=== PATIENT | male | born 1945 | race Caucasian/White ===

== ENCOUNTER → 2023-07-12 09:06 | Outpatient (REF) | payer MEDICARE, BC, SELFPAY ==
[2023-07-12 12:58] LABS: % Eosinophils 3.3 % (0-6); % Immature Granulocytes 0.4 % (0-0.5); % Lymphocytes 20.7 % (20.5-51.1); % Neutrophils 64.6 % (42.2-75.2); Absolute Basophils 0.1 10^3/uL (0-0.2); Absolute Eosinophils 0.2 10^3/uL (0-0.7); Absolute Lymphocytes 1.1 10^3/uL (1.2-3.4); Absolute Monocytes 0.5 10^3/uL (0.1-0.6); Absolute Neutrophils 3.3 10^3/uL (1.4-6.5); Hematocrit 38.7 % (39.0-52.0); Hemoglobin 12.7 g/dL (13.0-18.0); Mean Corp Hgb Conc. 32.8 g/dL (33.0-37.0); Mean Corpuscular Hgb 29.1 pg (27.0-31.0); Mean Corpuscular Volume 88.8 fL (80.0-94.0); Mean Platelet Volume 10.7 fL (7.4-10.4); Nucleated Red Blood Cells % 0 % (-); Platelet Count 135 10^3/uL (130-400); Red Blood Cell Count 4.36 10^6/uL (4.70-6.10); Red Cell Dist. Width 14.4 % (11.5-14.5); White Blood Cell Count 5.1 10^3/uL (4.8-10.8)
[2023-07-12 13:09] LABS: ALT (SGPT) 22 U/L (0-50); AST (SGOT) 37 U/L (17-59); Albumin 4.2 g/dl (3.5-5.0); Alkaline Phosphatase 79 U/L (38-126); Blood Urea Nitrogen 32 mg/dl (9-20); Calcium 9.5 mg/dl (8.4-10.2); Carbon Dioxide 33 mmol/L (22-30); Chloride 95 mmol/L (98-107); Glucose 127 mg/dl (70-99); Iron 71 ug/dl (49-181); Potassium 3.9 mmol/L (3.5-5.1); Sodium 138 mmol/L (135-145); Total Bilirubin 0.8 mg/dl (0.2-1.3); Total Protein 7.3 g/dl (6.3-8.2); eGFR > 60.00
[2023-07-12 13:18] LABS: Percent Saturation 20 % (20-50); Total Iron Binding Capacity 345 ug/dl (261-462)
[2023-07-12 13:34] LABS: PSA, Total - Screen < 0.06 ng/ml (0.0-4.0)
[2023-07-12 13:38] LABS: Ferritin 67.3 ng/ml (17.9-464.0)
[2023-07-12 13:58] LABS: Microalbumin/creatinine Ratio 76.6 mg/g
[2023-07-12 14:42] LABS: Glycohemoglobin (HgbA1c) 6.6 % (4.0-5.6)
== END ==
LOC: HWLAB 09:06
PROVIDERS: ATTENDING PHYSICIAN Internal Medicine Endocrinology, Diabetes & Metabolism; FAMILY PHYSICIAN Internal Medicine; OTHER PHYSICIAN Internal Medicine; REFERRING PHYSICIAN Internal Medicine
DX: I50.31 Acute diastolic (congestive) heart failure (principal); E11.65 Type 2 diabetes mellitus with hyperglycemia; Z79.4 Long term (current) use of insulin; D50.8 Other iron deficiency anemias; Z12.5 Encounter for screening for malignant neoplasm of prostate
CPT/HCPCS: 36415; 80053; 82043; 82570; 82728; 83036; 83540; 83550; 85025; G0103

== ENCOUNTER → 2023-07-20 07:14 | Outpatient (REF) | payer MEDICARE, BC, SELFPAY ==
--- NOTE | 2023-07-20 17:02 | CARDSERVDEF ---
Echocardiogram with Definity completed after protocol screening completed. Allergies verified.
Patent IV site: _RH____
IV site flushed with 0.9% NaCl pre and post administration.
Diluted bolus method utilized to enhance visualization of ventricular quiroz.
Total volume given: __3__ mL
Patient tolerated all procedures well without complications.
== END ==
LOC: DHCBC HW 07:14
PROVIDERS: ATTENDING PHYSICIAN Internal Medicine; FAMILY PHYSICIAN Internal Medicine
DX: I50.31 Acute diastolic (congestive) heart failure (principal); R06.09 Other forms of dyspnea
CPT/HCPCS: 93308; Q9957

== ENCOUNTER → 2023-09-05 11:28 | Outpatient (REF) | payer MEDICARE, BC, SELFPAY ==
[2023-09-05 13:42] LABS: Blood Urea Nitrogen 38 mg/dl (9-20); Calcium 9.8 mg/dl (8.4-10.2); Carbon Dioxide 31 mmol/L (22-30); Chloride 99 mmol/L (98-107); Glucose 247 mg/dl (70-99); Potassium 4.3 mmol/L (3.5-5.1); Sodium 134 mmol/L (135-145); eGFR > 60.00
== END ==
LOC: HWLAB 11:28
PROVIDERS: ATTENDING PHYSICIAN Internal Medicine
DX: I50.32 Chronic diastolic (congestive) heart failure (principal)
CPT/HCPCS: 36415; 80048

== ENCOUNTER → 2023-10-17 07:07 | Outpatient (REF) | payer MEDICARE, BC, SELFPAY ==
[2023-10-17 10:17] LABS: % Basophils 0.5 % (0-2); % Eosinophils 2.2 % (0-6); % Immature Granulocytes 0.2 % (0-0.5); % Lymphocytes 25.9 % (20.5-51.1); % Monocytes 8.9 % (1.7-9.3); % Neutrophils 62.3 % (42.2-75.2); Absolute Eosinophils 0.1 10^3/uL (0-0.7); Absolute Lymphocytes 1.5 10^3/uL (1.2-3.4); Absolute Monocytes 0.5 10^3/uL (0.1-0.6); Absolute Neutrophils 3.6 10^3/uL (1.4-6.5); Hematocrit 41.2 % (39.0-52.0); Hemoglobin 13.7 g/dL (13.0-18.0); Mean Corp Hgb Conc. 33.3 g/dL (33.0-37.0); Mean Corpuscular Hgb 28.2 pg (27.0-31.0); Mean Corpuscular Volume 84.8 fL (80.0-94.0); Mean Platelet Volume 10.2 fL (7.4-10.4); Nucleated Red Blood Cells % 0 % (-); Platelet Count 131 10^3/uL (130-400); Red Blood Cell Count 4.86 10^6/uL (4.70-6.10); White Blood Cell Count 5.8 10^3/uL (4.8-10.8)
[2023-10-17 10:40] LABS: ALT (SGPT) 27 U/L (0-50); AST (SGOT) 39 U/L (17-59); Albumin 4.1 g/dl (3.5-5.0); Alkaline Phosphatase 81 U/L (38-126); Blood Urea Nitrogen 45 mg/dl (9-20); Calcium 9.8 mg/dl (8.4-10.2); Carbon Dioxide 29 mmol/L (22-30); Chloride 98 mmol/L (98-107); Glucose 138 mg/dl (70-99); Sodium 135 mmol/L (135-145); Total Bilirubin 0.5 mg/dl (0.2-1.3); Total Protein 7.2 g/dl (6.3-8.2); eGFR > 60.00
[2023-10-17 11:30] LABS: Vitamin B12 386 pg/ml (239-931)
[2023-10-18 11:38] LABS: Fructosamine 362 umol/L (205-285)
== END ==
LOC: HWLAB 07:07
PROVIDERS: ATTENDING PHYSICIAN Internal Medicine; FAMILY PHYSICIAN Internal Medicine; REFERRING PHYSICIAN Internal Medicine Endocrinology, Diabetes & Metabolism
DX: I50.32 Chronic diastolic (congestive) heart failure (principal); E11.8 Type 2 diabetes mellitus with unspecified complications; E53.8 Deficiency of other specified B group vitamins; E03.9 Hypothyroidism, unspecified
CPT/HCPCS: 36415; 80053; 82607; 82985; 83036; 84443; 85025

== ENCOUNTER → 2023-11-23 12:35 | Outpatient (REF) | payer MEDICARE, BC, SELFPAY ==
[2023-11-23 15:20] LABS: Blood Urea Nitrogen 40 mg/dl (9-20); Calcium 9.9 mg/dl (8.4-10.2); Carbon Dioxide 28 mmol/L (22-30); Chloride 96 mmol/L (98-107); Glucose 194 mg/dl (70-99); Potassium 4.9 mmol/L (3.5-5.1); Sodium 135 mmol/L (135-145); eGFR 56.23
== END ==
LOC: HWLAB 12:35
PROVIDERS: ATTENDING PHYSICIAN Internal Medicine; FAMILY PHYSICIAN Internal Medicine
DX: I50.32 Chronic diastolic (congestive) heart failure (principal)
CPT/HCPCS: 36415; 80048

== ENCOUNTER → 2024-01-09 08:07 | Outpatient (REF) | payer MEDICARE, BC, SELFPAY | LOC: HWRAD 08:07 | PROVIDERS: ATTENDING PHYSICIAN Specialist; FAMILY PHYSICIAN Internal Medicine | DX: K74.60 Unspecified cirrhosis of liver (principal) | CPT/HCPCS: 76700 ==

== ENCOUNTER → 2024-01-11 07:10 | Outpatient (REF) | payer MEDICARE, BC, SELFPAY ==
[2024-01-11 09:39] LABS: % Basophils 0.6 % (0-2); % Eosinophils 2.5 % (0-6); % Immature Granulocytes 0.2 % (0-0.5); % Lymphocytes 27.7 % (20.5-51.1); % Monocytes 10.7 % (1.7-9.3); % Neutrophils 58.3 % (42.2-75.2); Absolute Eosinophils 0.1 10^3/uL (0-0.7); Absolute Lymphocytes 1.4 10^3/uL (1.2-3.4); Absolute Monocytes 0.6 10^3/uL (0.1-0.6); Hematocrit 39.5 % (39.0-52.0); Hemoglobin 13.2 g/dL (13.0-18.0); Mean Corp Hgb Conc. 33.4 g/dL (33.0-37.0); Mean Corpuscular Volume 86.8 fL (80.0-94.0); Mean Platelet Volume 10.3 fL (7.4-10.4); Nucleated Red Blood Cells % 0 % (-); Platelet Count 123 10^3/uL (130-400); Red Blood Cell Count 4.55 10^6/uL (4.70-6.10); Red Cell Dist. Width 13.4 % (11.5-14.5); White Blood Cell Count 5.1 10^3/uL (4.8-10.8)
[2024-01-11 09:46] LABS: INR 1.09; PT 14.1 Sec (11.4-14.6)
[2024-01-11 09:47] LABS: APTT 29.4 Sec (23.4-35.0)
[2024-01-11 10:17] LABS: ALT (SGPT) 23 U/L (0-50); AST (SGOT) 35 U/L (17-59); Albumin 4.2 g/dl (3.5-5.0); Alkaline Phosphatase 67 U/L (38-126); Blood Urea Nitrogen 46 mg/dl (9-20); Calcium 9.7 mg/dl (8.4-10.2); Carbon Dioxide 26 mmol/L (22-30); Chloride 102 mmol/L (98-107); Glucose 98 mg/dl (70-99); HDL Cholesterol 47 mg/dl; LDL Cholesterol, Calculated 41 mg/dl; Potassium 4.9 mmol/L (3.5-5.1); Sodium 137 mmol/L (135-145); Total Bilirubin 0.8 mg/dl (0.2-1.3); Total Cholesterol 122 mg/dl (50-199); Triglyceride 171 mg/dl (10-149); Very Low Density Lipoprotein 34 mg/dl (0-30); eGFR 55.88
[2024-01-11 10:46] LABS: Glycohemoglobin (HgbA1c) 7.7 % (4.0-5.6)
[2024-01-11 19:32] LABS: AFP Male/Tumor Marker 1.58 ng/ml
[2024-01-13 04:56] LABS: Fructosamine 360 umol/L (205-285)
== END ==
LOC: HWLAB 07:10
PROVIDERS: ATTENDING PHYSICIAN Internal Medicine Endocrinology, Diabetes & Metabolism; FAMILY PHYSICIAN Internal Medicine; REFERRING PHYSICIAN Specialist
DX: K74.60 Unspecified cirrhosis of liver (principal); E11.65 Type 2 diabetes mellitus with hyperglycemia; Z79.4 Long term (current) use of insulin
CPT/HCPCS: 36415; 80053; 80061; 82105; 82985; 83036; 85025; 85610; 85730

== ENCOUNTER → 2024-02-09 09:58 | Outpatient (REF) | payer MEDICARE, BC, SELFPAY ==
[2024-02-09 13:59] LABS: Blood Urea Nitrogen 46 mg/dl (9-20); Carbon Dioxide 27 mmol/L (22-30); Chloride 98 mmol/L (98-107); Glucose 178 mg/dl (70-99); Potassium 5.2 mmol/L (3.5-5.1); Sodium 137 mmol/L (135-145); eGFR 55.88
== END ==
LOC: HWLAB 09:58
PROVIDERS: ATTENDING PHYSICIAN Internal Medicine Endocrinology, Diabetes & Metabolism; FAMILY PHYSICIAN Internal Medicine
DX: R79.89 Other specified abnormal findings of blood chemistry (principal)
CPT/HCPCS: 36415; 80048

== ENCOUNTER → 2024-02-13 08:02 | Outpatient (REF) | payer MEDICARE, BC, SELFPAY | LOC: DHVS 08:02 | PROVIDERS: ATTENDING PHYSICIAN Surgery Vascular Surgery; FAMILY PHYSICIAN Internal Medicine | DX: I65.23 Occlusion and stenosis of bilateral carotid arteries (principal) | CPT/HCPCS: 93880 ==

== ENCOUNTER → 2024-03-20 08:51 | Outpatient (REF) | payer MEDICARE, BC, SELFPAY ==
[2024-03-20 13:53] LABS: ALT (SGPT) 25 U/L (0-50); AST (SGOT) 34 U/L (17-59); Albumin 4.3 g/dl (3.5-5.0); Alkaline Phosphatase 65 U/L (38-126); Blood Urea Nitrogen 42 mg/dl (9-20); Calcium 9.4 mg/dl (8.4-10.2); Carbon Dioxide 27 mmol/L (22-30); Chloride 100 mmol/L (98-107); Glucose 103 mg/dl (70-99); Magnesium 2.1 mg/dl (1.6-2.3); Potassium 5.3 mmol/L (3.5-5.1); Sodium 136 mmol/L (135-145); Total Bilirubin 0.6 mg/dl (0.2-1.3); Total Protein 7.3 g/dl (6.3-8.2); Triglycerides 142 mg/dl (10-149); eGFR > 60.00
[2024-03-20 14:19] LABS: TSH 1.77 uIU/ml (0.47-4.68)
[2024-03-20 16:35] LABS: Glycohemoglobin (HgbA1c) 7.5 % (4.0-5.6)
== END ==
LOC: HWLAB 08:51
PROVIDERS: ATTENDING PHYSICIAN Internal Medicine Endocrinology, Diabetes & Metabolism; FAMILY PHYSICIAN Internal Medicine; REFERRING PHYSICIAN Internal Medicine
DX: I25.5 Ischemic cardiomyopathy (principal); K75.81 Nonalcoholic steatohepatitis (NASH); R25.2 Cramp and spasm; E11.65 Type 2 diabetes mellitus with hyperglycemia; Z79.4 Long term (current) use of insulin; E78.5 Hyperlipidemia, unspecified
CPT/HCPCS: 36415; 80053; 83036; 83735; 84443; 84478

== ENCOUNTER → 2024-06-26 10:26 | Outpatient (REF) | payer MEDICARE, BC, SELFPAY ==
[2024-06-26 12:56] LABS: Blood Urea Nitrogen 37 mg/dl (9-20); Calcium 9.8 mg/dl (8.4-10.2); Carbon Dioxide 31 mmol/L (22-30); Chloride 94 mmol/L (98-107); Glucose 261 mg/dl (70-99); Sodium 132 mmol/L (135-145); eGFR 55.88
== END ==
LOC: HWLAB 10:26
PROVIDERS: ATTENDING PHYSICIAN Internal Medicine; FAMILY PHYSICIAN Internal Medicine
DX: I50.32 Chronic diastolic (congestive) heart failure (principal)
CPT/HCPCS: 36415; 80048

== ENCOUNTER → 2024-07-11 08:03 | Outpatient (REF) | payer MEDICARE, BC, SELFPAY ==
[2024-07-11 09:55] LABS: % Basophils 0.8 % (0-2); % Eosinophils 6.8 % (0-6); % Immature Granulocytes 0.2 % (0-0.5); % Lymphocytes 20.3 % (20.5-51.1); % Monocytes 10.6 % (1.7-9.3); % Neutrophils 61.3 % (42.2-75.2); Absolute Eosinophils 0.4 10^3/uL (0-0.7); Absolute Lymphocytes 1.1 10^3/uL (1.2-3.4); Absolute Monocytes 0.6 10^3/uL (0.1-0.6); Absolute Neutrophils 3.2 10^3/uL (1.4-6.5); Hematocrit 39.4 % (39.0-52.0); Hemoglobin 12.8 g/dL (13.0-18.0); Mean Corp Hgb Conc. 32.5 g/dL (33.0-37.0); Mean Corpuscular Hgb 29.3 pg (27.0-31.0); Mean Corpuscular Volume 90.2 fL (80.0-94.0); Mean Platelet Volume 10.2 fL (7.4-10.4); Nucleated Red Blood Cells % 0 % (-); Platelet Count 125 10^3/uL (130-400); Red Blood Cell Count 4.37 10^6/uL (4.70-6.10); Red Cell Dist. Width 13.4 % (11.5-14.5); White Blood Cell Count 5.3 10^3/uL (4.8-10.8)
[2024-07-11 10:08] LABS: INR 0.98; PT 13.5 Sec (11.4-14.6)
[2024-07-11 10:09] LABS: ALT (SGPT) 46 U/L (0-50); APTT 28.5 Sec (23.4-35.0); AST (SGOT) 58 U/L (17-59); Albumin 3.9 g/dl (3.5-5.0); Alkaline Phosphatase 87 U/L (38-126); Blood Urea Nitrogen 38 mg/dl (9-20); Calcium 9.5 mg/dl (8.4-10.2); Carbon Dioxide 31 mmol/L (22-30); Chloride 99 mmol/L (98-107); Glucose 133 mg/dl (70-99); Potassium 5.2 mmol/L (3.5-5.1); Sodium 134 mmol/L (135-145); Total Bilirubin 0.6 mg/dl (0.2-1.3); eGFR > 60.00
[2024-07-11 10:47] LABS: Glycohemoglobin (HgbA1c) 7.4 % (4.0-5.6)
[2024-07-11 12:25] LABS: Microalbumin, Random Urine 1.3 mg/dl (0.6-1.7)
[2024-07-11 12:46] LABS: Microalbumin/creatinine Ratio 17.4 mg/g
== END ==
LOC: HWLAB 08:03
PROVIDERS: ATTENDING PHYSICIAN Specialist; FAMILY PHYSICIAN Internal Medicine; REFERRING PHYSICIAN Internal Medicine Endocrinology, Diabetes & Metabolism
DX: K74.60 Unspecified cirrhosis of liver (principal); E11.65 Type 2 diabetes mellitus with hyperglycemia; Z79.4 Long term (current) use of insulin
CPT/HCPCS: 36415; 80053; 82043; 82105; 82570; 83036; 85025; 85610; 85730

== ENCOUNTER → 2024-08-30 08:28 | Outpatient (REF) | payer MEDICARE, BC, SELFPAY ==
--- NOTE | 2024-08-30 09:13 | CARDSERVDEF ---
Echocardiogram with Definity completed after protocol screening completed. Allergies verified.
Patent IV site: RH
IV site flushed with 0.9% NaCl pre and post administration.
Diluted bolus method utilized to enhance visualization of ventricular quiroz.
Total volume given: ___2_ mL
Patient tolerated all procedures well without complications.
== END ==
LOC: HWRCS 08:28
PROVIDERS: ATTENDING PHYSICIAN Internal Medicine; FAMILY PHYSICIAN Internal Medicine
DX: I47.20 Ventricular tachycardia, unspecified (principal); I50.32 Chronic diastolic (congestive) heart failure; I25.810 Atherosclerosis of coronary artery bypass graft(s) without angina pectoris
CPT/HCPCS: 93306

== ENCOUNTER → 2024-09-30 08:34 | Outpatient (REF) | payer MEDICARE, BC, SELFPAY ==
[2024-09-30 12:56] LABS: Glycohemoglobin (HgbA1c) 7.2 % (4.0-5.6)
[2024-09-30 13:29] LABS: ALT (SGPT) 24 U/L (0-50); AST (SGOT) 34 U/L (17-59); Albumin 4.6 g/dl (3.5-5.0); Alkaline Phosphatase 74 U/L (38-126); Blood Urea Nitrogen 44 mg/dl (9-20); Calcium 9.4 mg/dl (8.4-10.2); Carbon Dioxide 24 mmol/L (22-30); Chloride 104 mmol/L (98-107); Glucose 178 mg/dl (70-99); HDL Cholesterol 45 mg/dl; LDL Cholesterol, Calculated 40 mg/dl; Magnesium 2.3 mg/dl (1.6-2.3); Potassium 5.4 mmol/L (3.5-5.1); Sodium 137 mmol/L (135-145); Total Bilirubin 0.9 mg/dl (0.2-1.3); Total Cholesterol 124 mg/dl (50-199); Total Protein 7.7 g/dl (6.3-8.2); Triglyceride 197 mg/dl (10-149); Very Low Density Lipoprotein 39 mg/dl (0-30); eGFR 55.88
== END ==
LOC: HWLAB 08:34
PROVIDERS: ATTENDING PHYSICIAN Internal Medicine; FAMILY PHYSICIAN Internal Medicine; REFERRING PHYSICIAN Internal Medicine Endocrinology, Diabetes & Metabolism
DX: I50.32 Chronic diastolic (congestive) heart failure (principal); I25.10 Atherosclerotic heart disease of native coronary artery without angina pectoris; E11.65 Type 2 diabetes mellitus with hyperglycemia; Z79.4 Long term (current) use of insulin; E03.9 Hypothyroidism, unspecified
CPT/HCPCS: 36415; 80053; 80061; 83036; 83735; 84443

== ENCOUNTER 2024-10-04 06:58 | Day surgery (SDC) | payer MEDICARE, BC, SELFPAY ==
[2024-10-04 07:58] LABS: Glucose - Point of Care 250 mg/dl (70-99)
== END 2024-10-04 09:30 | disposition home or self-care (01) ==
LOC: CATH 06:58
PROVIDERS: ATTENDING PHYSICIAN Internal Medicine; FAMILY PHYSICIAN Internal Medicine
DX: I08.1 Rheumatic disorders of both mitral and tricuspid valves (principal); I47.20 Ventricular tachycardia, unspecified; I11.0 Hypertensive heart disease with heart failure; I50.32 Chronic diastolic (congestive) heart failure; E78.5 Hyperlipidemia, unspecified; Z95.1 Presence of aortocoronary bypass graft; I44.0 Atrioventricular block, first degree; E78.1 Pure hyperglyceridemia; E11.59 Type 2 diabetes mellitus with other circulatory complications; K21.9 Gastro-esophageal reflux disease without esophagitis; K76.0 Fatty (change of) liver, not elsewhere classified; Z95.810 Presence of automatic (implantable) cardiac defibrillator; I25.2 Old myocardial infarction; Z79.84 Long term (current) use of oral hypoglycemic drugs; Z79.4 Long term (current) use of insulin; Z79.02 Long term (current) use of antithrombotics/antiplatelets
CPT/HCPCS: 93312; 93320; 93325; 82962

== ENCOUNTER 2024-10-09 14:09 | Inpatient (IN) | payer MEDICARE, BC, SELFPAY ==
[2024-10-09] VITALS (13 sets, daily range): BP systolic 108–142; BP diastolic 57–84; PULSE 77–81; BMI 31.6; BMI 30.7
--- NOTE | 2024-10-09 10:51 | ED.GENMED ---
History of Present Illness
General
Chief Complaint: Dizziness
Time Seen by Provider: 10/09/24 10:38
History of Present Illness
History of Present Illness:
Patient is a 78-year-old male with history of CAD status post CABG and multiple stents, diabetes, hypertension, hyperlipidemia, prior [place] presenting to the emergency department with dizziness and shortness of breath. Per chart review patient was
admitted last year after cardiac arrest when he was found to have an occluded RCA and in-stent restenosis that did not need any intervention. He had an ICD placed. He that things have been going well up until recently when he has been
progressively more short of breath especially upon exertion. He has been having frequent bouts of heartburn requiring Tums. Today he was walking when he became dizzy short of breath pale and felt unwell so his called 911. Patient denies
chest pain but says that he is having heartburn sensation. He does state that he is in the process of getting his mitral valve evaluated for repair. He did have aortic valve stenosis requiring repair.
Past History
Past History
ED Past Medical History: CAD, GERD, HTN, Hypercholesterolemia, NIDDM, [place], Hypothyroidism and Other (Anemia)
ED Past Surgical History: Cardiac (CABG, aortic valve replacement, PTCA with stents) and Other (Left carotid endarterectomy)
Social History
Tobacco: Non-smoker
Alcohol: None
Drug: None
Personal:
Living: with family
Employment: Retired
Family History
Family History: Other (Noncontributory)
Phy Exam
Physical Exam
Physical Exam:
GENERAL: in no acute distress
HEENT: normocephalic, extraocular movements intact, moist oral mucosa
NECK: normal inspection
RESPIRATORY: no respiratory distress, clear to auscultation bilaterally
CARDIOVASCULAR: regular rate and rhythm
ABDOMEN/: soft, non-distended, non-tender to palpation, no rebound or guarding
EXTREMITIES: non-tender, no edema/swelling
NEUROLOGIC: awake and alert, moves all extremities
SKIN: warm
Course
Orders/Labs/Results
Orders:
Orders
10/09/24
Electrocardiogram (*1) Stat
Comment: DONE
10/09/24 10:10
Electrocardiogram (*1) Urgent
Reason for Study: Shortness of Breath
10/09/24 10:11
EKG- Treatment ONCE
10/09/24 10:55
CR Chest - 2 Views Urgent
Comment:
Reason For Exam: sob, spangler
10/09/24 11:20
CMP [Comprehensive Metabolic Panel] Urgent
Complete Blood Count/With Diff Urgent
NT-proBNP Urgent
Troponin I Urgent
10/09/24 11:39
Interrogate Pacemaker- Treatment ONCE
10/09/24 12:13
CT Chest PE Study Urgent
Comment:
Reason For Exam: sob, spangler
10/09/24 12:41
EKG- Treatment ONCE
10/09/24 14:30
Electrocardiogram (*1) Urgent
Reason for Study: Chest Pain
Troponin I Urgent
Abnormal Lab Results
10/09/24
11:20
RBC 4.29 L 10^6/uL
(4.70-6.10)
Hgb 12.9 L g/dL
(13.0-18.0)
Hct 37.9 L %
(39.0-52.0)
Plt Count 124 L 10^3/uL
(130-400)
Absolute Lymphs (auto) 1.0 L 10^3/uL
(1.2-3.4)
Neutrophils % 76.2 H %
(42.2-75.2)
Lymphocytes % 14.0 L %
(20.5-51.1)
BUN 44 H mg/dl
(9-20)
Glucose 247 H mg/dl
(70-99)
10/09/24 11:20
10/09/24 11:20
Vital Signs
Initial and Last Documented VS:
Initial Vital Signs
Temp Pulse Resp BP Pulse Ox
98 F 93 18 142/72 98
10/09/24 10:06 10/09/24 10:06 10/09/24 10:06 10/09/24 10:06 10/09/24 10:06
Last Documented Vital Signs
Temp Pulse Resp BP Pulse Ox
98 F 82 18 119/63 98
10/09/24 10:06 10/09/24 11:00 10/09/24 10:06 10/09/24 11:00 10/09/24 11:00
MDM/Problems Addressed
Differential Diagnosis Includes:
Patient is a 78-year-old man with extensive cardiac history presenting to the emergency department with shortness of breath dizziness and heartburn sensation. On arrival vitals unremarkable exam is reassuring. Differential consists of ACS versus
CHF versus pneumonia. Considered PE though less likely. EKG obtained prior to my evaluation. Per my interpretation there is significant ST depressions laterally though it does appear similar to prior. He does have possibly slight elevation in
lead III. I did obtain a repeat EKG in about 10 minutes which shows similar findings. I did discuss with on-call interventional cardiology who recommended not STEMI alert at this time. Will proceed with blood work and chest x-ray. Will obtain
additional EKG if he has worsening symptoms. Will interrogate pacer
*Critical Care Note
Total Time (30-74mins, 75-104mins- exclusive of procedures): Not Applicable
Update Note
Update Note:
Troponin normal. Will obtain delta.. BNP elevated though lungs were clear to auscultation. Chest x-ray per my interpretation without any vascular congestion either. Given the elevation in BNP and troponin 0.[address] chest PE.
Given patient's symptoms I did discuss with cardiology who is in agreement with admission and they will see him as consult. Discussed with hospitalist who accepted patient to their service
ED Attending Note
-
Portions of this chart may have been created with voice recognition software.� Occasional wrong word or��sound alike� substitutions may have occurred due to the inherent limitations of voice recognition software.
Discharge Plan
Departure
Patient Disposition: Admit
Date of Disposition: 10/09/24
Time of Disposition: 12:41
Presentation/result/management discussed w/ accepting MD/DO: Hospitalist
Discharge Problem:
Shortness of breath
Prescriptions:
No Action
magnesium oxide 250 MG tablet
250 mg PO QPM
nitroglycerin 0.4 MG tablet, sublingual
0.4 mg sublingual [id number] PRN (Reason: chest pain)
levothyroxine 88 MCG tablet
88 mcg PO DAILY
rosuvastatin 20 MG tablet
20 mg PO HS
icosapent ethyl [Vascepa] 1 GM capsule
2 gm PO BID
Jardiance 25 MG tablet
25 mg PO DAILY
cholecalciferol (vitamin D3) [Vitamin D3] 25 mcg (1,000 unit) Capsule
25 mcg PO DAILY
metformin 500 mg tablet extended release 24 hr
1,000 mg PO DAILY
clopidogrel 75 MG tablet
75 mg PO DAILY
aspirin [Adult Low Dose Aspirin] 81 mg Tablet,Delayed Release (Dr/Ec)
81 mg PO DAILY
insulin aspart U-100 [Novolog FlexPen U-100 Insulin] 100 unit/mL (3 mL) Insulin Pen
0 sliding scale dose SC DIRECTED
Patient Comments:
05/18/2023, pt. states that he takes a sliding scale dose AC; pt. does not know what the sliding scale is; pt. states that he uses between 12-24 units AC.
PreserVision AREDS-2 250-90-40-1 mg Capsule
1 tab PO BID
isosorbide mononitrate 30 mg Tablet Extended Release 24 Hr
30 mg PO DAILY Qty: 30 0RF
spironolactone [Aldactone] 25 mg Tablet
12.5 mg PO DAILY
furosemide [Lasix] 20 mg Tablet
20 mg PO DAILY
Lantus U-100 Insulin 100 unit/mL Cartridge
36 unit SC BID
Referrals:
Bernabe Madera MD [Family Provider, Internal Medicine]
Interventions
Interventions:
*Risk Screen - Suicide Last Done: 10/09/24 10:06
*General Assessment Last Done: 10/09/24 10:06
*Neglect/Abuse Screening Last Done: 10/09/24 10:06
*ED COVID-19 Vaccine History Last Done: 10/09/24 11:21
ED- Neurological Assessment Last Done: 10/09/24 11:31
ED- Cardiac Assessment Last Done: 10/09/24 11:31
Discharge Date and Time
Print Language: GAMBIAN
[2024-10-09 11:32] LABS: % Basophils 0.4 % (0-2); % Eosinophils 0.9 % (0-6); % Immature Granulocytes 0.3 % (0-0.5); % Monocytes 8.2 % (1.7-9.3); % Neutrophils 76.2 % (42.2-75.2); Absolute Eosinophils 0.1 10^3/uL (0-0.7); Absolute Monocytes 0.6 10^3/uL (0.1-0.6); Absolute Neutrophils 5.3 10^3/uL (1.4-6.5); Hematocrit 37.9 % (39.0-52.0); Hemoglobin 12.9 g/dL (13.0-18.0); Mean Corpuscular Hgb 30.1 pg (27.0-31.0); Mean Corpuscular Volume 88.3 fL (80.0-94.0); Mean Platelet Volume 9.8 fL (7.4-10.4); Nucleated Red Blood Cells % 0 % (-); Platelet Count 124 10^3/uL (130-400); Red Blood Cell Count 4.29 10^6/uL (4.70-6.10); Red Cell Dist. Width 13.8 % (11.5-14.5)
[2024-10-09 11:40] LABS: ALT (SGPT) 21 U/L (0-50); AST (SGOT) 26 U/L (17-59); Albumin 3.8 g/dl (3.5-5.0); Alkaline Phosphatase 56 U/L (38-126); Blood Urea Nitrogen 44 mg/dl (9-20); Calcium 9.6 mg/dl (8.4-10.2); Carbon Dioxide 27 mmol/L (22-30); Chloride 105 mmol/L (98-107); Estimated Creatinine Clearance 51 ml/min; Glucose 247 mg/dl (70-99); Potassium 4.8 mmol/L (3.5-5.1); Sodium 135 mmol/L (135-145); Total Bilirubin 0.7 mg/dl (0.2-1.3); Total Protein 6.6 g/dl (6.3-8.2); eGFR 55.88
[2024-10-09 11:50] LABS: NT-proBNP 1960 pg/ml; Troponin I 0.027 ng/ml
--- NOTE | 2024-10-09 13:18 | HPS.HSE ---
Addendum entered and electronically signed by Edwar Correa MD 10/10/24 09:22:
Correction:
ASSESSMENT & PLAN
Pending Rx reconciliation
Dyspnea Class III /III - Progressive dyspnea to CHILDS
Postural dizziness vs presyncope
Suspect associated with valvular severe MR ( mitral regurgitation ) <del>MS</del>
- Clinically not in acute HF
- check Ortho VSS
- Pending CTC for PE
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
- Pending in the process of getting his mitral valve evaluated for repair.
- Card consult
Original Note:
Family Physician
-
Family Physician: Bernabe Madera
Chief Complaint
-
dizziness and shortness of breath
History of Present Illness
HPI
78MHX f CAD status post CABG and multiple stents, diabetes, hypertension, hyperlipidemia, prior [place], cardiac arrest sen at ER [facility] after 911 called
- dizziness and shortness of breath
- recently when he has been progressively more short of breath especially upon exertion.
- frequent bouts of heartburn requiring Tums.
- Today he was walking when he became dizzy short of breath pale and felt unwell so his called 911.
ROS
- denies chest pain but says that he is having heartburn sensation.
HX Cardiac (CABG, aortic valve replacement, PTCA with stents) and Other (Left carotid endarterectomy)
Medical History
Past Medical History
Past Medical History: Reports Other
Additional Past Medical History:
HI
HTn
HLD
DM
carotid disease
Past Surgical History: Reports Other
Additional Past Surgical History:
CABG x4
cardiac stents
CEA
Bio AVR
Social History
Tobacco: Non-smoker
Alcohol: None
Personal:
Living: With Family
Family History
Family History: Not pertinent
Allergies / Home Medications
Allergies reflects when Allergies were last updated in [facility].
Home Medications with original date entered in [facility]
Allergy/Medication List:
Allergies
Allergy/AdvReac Type Severity Reaction Status Date / Time
adhesive tape Allergy Unknown Rash Verified 09/30/22 05:30
morphine AdvReac Unknown vasovagal Verified 09/30/22 05:30
when in
conjunction
with
nitroglycerine
per pt
Home Medications
magnesium oxide 250 mg PO QPM Supplement 06/11/14
nitroglycerin 0.4 mg sublingual tablet 0.4 mg sublingual [id number] PRN chest pain 08/13/15
levothyroxine 88 mcg tablet 88 mcg PO DAILY Thyroid 10/27/17
rosuvastatin 20 mg tablet 20 mg PO HS High Cholesterol 10/27/17
empagliflozin 25 mg tablet (Jardiance) 25 mg PO DAILY Diabetes 11/09/20
icosapent ethyl 1 gram capsule (Vascepa) 2 gm PO BID High Cholesterol 11/09/20
amlodipine 5 mg tablet 5 mg PO DAILY Blood Pressure 10/15/21
cholecalciferol (vitamin D3) 25 mcg (1,000 unit) capsule (Vitamin D3) 25 mcg PO DAILY Supplement 09/30/22
clopidogrel 75 mg tablet 75 mg PO DAILY Blood Clot Prevention/Tx 09/30/22
metformin 500 mg tablet,extended release 24 hr 1,000 mg PO DAILY Diabetes 09/30/22
aspirin 81 mg tablet,delayed release 81 mg PO DAILY Blood Clot Prevention/Tx 05/18/23
carvedilol 3.125 mg tablet 3.125 mg PO BID Blood Pressure 05/18/23
insulin aspart U-100 100 unit/mL (3 mL) subcutaneous pen (Novolog FlexPen U-100 Insulin aspart) 0 sliding scale dose SC DIRECTED Diabetes 05/18/23
insulin glargine 100 unit/mL (3 mL) subcutaneous pen (Lantus Solostar U-100 Insulin) 40 unit SC HS Diabetes 05/18/23
isosorbide mononitrate 60 mg tablet,extended release 24 hr 60 mg PO BID Heart Disease/Condition 05/18/23
vit C 250 mg-vit E 90 mg-zinc 40 mg-copper 1 [id number] capsule (PreserVision AREDS-2) 1 tab PO BID Supplement 05/18/23
Review of Systems
-
Constitutional: Reports No Symptoms
EENT: Reports No Symptoms
Respiratory: Reports Trouble Breathing
Cardiac: Reports See HPI
Abdomen/GI: Reports See HPI and Other (frequent heart burn )
: Reports No Symptoms
Musculoskeletal: Reports No Symptoms
Skin: Reports No Symptoms
Neurological: Reports Dizzy
Endocrine: Reports No Symptoms
Hematologic/Lymphatic: Reports No Symptoms
Psych: Reports No Symptoms
Physical Exam
Vital Signs
Vital Signs
Temp Pulse Resp BP Pulse Ox
98 F 79 23 119/63 98
10/09/24 10:06 10/09/24 13:00 10/09/24 13:00 10/09/24 11:00 10/09/24 13:00
Physical Exam
General: Well Developed, Well Nourished and No Apparent Distress
HEENT: NormoCephalic, Moist mucous membranes and Atraumatic
Respiratory: Clear
Cardiac: S1/S2, Regular Rhythm and Murmur (loud SM ); No Rub
GI: Soft, Non Tender, Non Distended and Normal Bowel Sounds; No Organomegaly
Rectal: Deferred by Provider
Musculoskeletal: No Clubbing, No Cyanosis and No Edema
Skin: No Rash
Neuro: AO x 3 and Nonfocal/grossly intact
Psych: Calm
Laboratory Results
-
10/09/24 11:20
10/09/24 11:20
Laboratory Results
Total Bilirubin 0.7 mg/dl (0.2-1.3) 10/09/24 11:20
AST 26 U/L (17-59) 10/09/24 11:20
ALT 21 U/L (0-50) 10/09/24 11:20
Alkaline Phosphatase 56 U/L (38-126) 10/09/24 11:20
Troponin I 0.027 ng/ml 10/09/24 11:20
Data Reviewed
-
Diagnostic Radiology: Report Reviewed by me
CT Scan: Other (pending CTC PE protocol )
Medical Tests (Nuc Med, Echo, EKG etc): Report Reviewed by me
Lab Data: Labs Reviewed by me
Old Records: Reviewed
Impression/Plan
-
Data
Hgb 12.9
Low Platelet 124 and at baseline ( chronic)
BUN 44
Cr 1.3 is at baseline
eGFR 55.8 is at baseline c/w CKD CKD G3a
#1. TPNI 0.027
#2. TPNI pending
pro BNP 1960 ( highest level )
CXR: he lungs are clear. No pleural effusion or pneumothorax.
10/09/24 & 1010
SINUS RHYTHM WITH 1ST DEGREE A-V BLOCK WITH PREMATURE ATRIAL COMPLEXES
MINIMAL VOLTAGE CRITERIA FOR LVH, MAY BE NORMAL VARIANT ( [place] product )
INFERIOR INFARCT (CITED ON OR BEFORE 09-NOV-2020)
CANNOT RULE OUT SEPTAL INFARCT
MARKED ST ABNORMALITY, POSSIBLE LATERAL SUBENDOCARDIAL INJURY
ABNORMAL ECG
WHEN COMPARED WITH ECG OF 23-MAY-2023 04:00,
NO SIGNIFICANT CHANGE WAS FOUND
Confirmed by MARISOL DUBOIS MD ([id number]) on 10/09/2024 10:38:28 AM
10/04/24 TRUMAN
- Normal biventricular size and systolic function
- No regional wall motion abnormality.
- Estimated LVEF 60-65%.
Thickened mitral valve leaflets.
- Severe mitral regurgitation.
- There valve does not fully coapt at the medial edge of A2/P2 with an eccentric jet originating from this region.
- No mitral stenosis.
Last hospitalist admission: 05/18/2023 - 05/23/2023
DISCHARGE DIAGNOSES:
1. Cardiac arrest.
2. Shock.
3. Diabetes mellitus 2 with hyperglycemia.
4. Hyponatremia.
5. Acute thrombocytopenia.
ASSESSMENT & PLAN
Pending Rx reconciliation
Dyspnea Class III /III - Progressive dyspnea to CHILDS
Postural dizziness vs presyncope
Suspect associated with valvular severe MS
- Clinically not in acute HF
- check Ortho VSS
- Pending CTC for PE
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
- Pending in the process of getting his mitral valve evaluated for repair.
- Card consult
Severe mitral regurgitation without mitral stenosis.
LVEF 60-65%.
- Pending in the process of getting his mitral valve evaluated for repair.
Known occluded RCA in the mid portion not amenable to attempted PCI
Also a significant in-stent restenosis in the vein graft to the obtuse marginal branch.( No attempt was made to treat this lesion)
HX CAD, HI, cardiac arrest
- Trend serial TPNI and EKG
- c/w ELECTRON BEAM MACHINE WELDER SETTER DAPL
- c/w SL NTG PRN
- c/w IMN
- c/w Spironolactone, Jardiance
HX aortic valve stenosis s/p AoVR
IDDM
- Hold Metformin
- c/w basal bolus insulin
- c/w Jardiance
- add ISS low
CKD3a HX - stable (Cr 1.3 is at baseline eGFR 55.8 is at baseline )
- Observe Cr
Hypothyroid on LT4
Chr stable mild thrombocytopenia
- Observe
DVT Px: SQH
Code: Full
IP TLM
--- NOTE | 2024-10-09 13:56 | CON.CAR ---
Addendum entered and electronically signed by Munir Lazaro MD 10/09/24 17:45:
I saw and examined the patient.
The FILING AND POLISHING SUPERVISOR's note was reviewed and I agree with the note.
Comment:
78 y/o male (patient of Dr. Escamilla) with hx cardiac arrest 05/2023 (in setting of occluded RCA - med management), [place] s/p MDT dual chamber ICD, CAD s/p CABG and multiple PCIs, s/p AVR 2014, severe MR. He is in the midst of a mitraclip evaluation. He
presents today for subacute dyspnea on exertion and an episode of lightheadedness and dizziness. He reports that when he woke up this morning he went to the bathroom to brush his teeth and felt lightheaded. His said he looked ashen and that
they should go to the hospital. He did not check his blood pressure during this episode but this is on the background of his needing to decrease BP meds recently due to hypotension. Orthostatic vitals in the ER were negative. ECG unchanged from
prior. Troponin 0.027, proBNP 1960. CXR unremarkable.
Physical exam notable for regular rate and rhythm, systolic murmur, trace lower extremity edema, faint bilateral crackles at the lung bases
I am not sure what caused his episode of dizziness and ashen appearance prior to admission. Possible vasovagal episode as Dr. Escamilla has been lowering his blood pressure meds due to hypotension. It seems to have resolved and he feels back to
baseline. We will monitor overnight on telemetry for arrhythmia. In terms of his subacute dyspnea on exertion, it is most likely due to his severe mitral regurgitation. I reviewed his transesophageal echocardiogram with Dr. Sánchez who thinks that
MitraClip is reasonable though it would not be done during this admission. He should continue home Lasix 20 mg daily. I do not think he is volume overloaded.
Original Note:
Consultation
Consultation Request
Date/Time Consultation Requested: 10/09/24 2718
Date/Time Consultation Performed: 10/09/24 1356
Requesting Provider: Dr. Correa
Performing Provider: Roberta CINTRON for Dr. Lazaro
Reason for Consultation: mitral valve disease, SOB
Medical History
-
Chief Complaint: dizziness, SOB
History of Present Illness:
78 y/o male (patient of Dr. Escamilla) with hx cardiac arrest 05/2023 (in setting of occluded RCA - med management), [place] s/p MDT dual chamber ICD, CAD s/p CABG 1998, RCA mid and distal stents 2014, stent to LORA-D2 11/2020, SVG-Om2 09/2021, high grade LICA
stenosis s/p L CEA 2016, moderate right carotid stenosis, s/p AVR 2014, severe MR, HTN, DM, chronic LLE edema, GIB. He is in the midst of a mitraclip evaluation. He is here today since he he woke up today feeling light-headed with some nausea.
His thought he looked pale. He gets heartburn that resolves with tums and is worse with spicy food as well, but that is seperate from his other symptoms. He walked to the bathroom today and was so SOB, he thought he might pass out. BNP elevated
from previous, but CXR stable and his weight is actually down from baseline. He feels fine laying and is in no distress at the time of my assessment. Denies orthopnea and PND.
Past Medical History
Past Medical History: Arrhythmias, CAD, HTN, NIDDM and Valvular Disease
Social History
Personal:
Living: With Family
Family History
Family History: Reviewed & Not Pertinent
Allergies / Home Medications
Allergy/AdvReac Type Severity Reaction Status Date / Time
adhesive tape Allergy Rash Verified 10/09/24 10:10
morphine Allergy vasovagal Verified 10/09/24 10:10
when in
conjunction
with
nitroglycerine
per pt
�Medication �Instructions �Recorded �Confirmed �Type
magnesium oxide 250 mg PO QPM Supplement 06/11/14 10/09/24 History
nitroglycerin 0.4 mg sublingual 0.4 mg sublingual [id number] PRN 08/13/15 10/09/24 History
tablet chest pain
levothyroxine 88 mcg tablet 88 mcg PO DAILY Thyroid 10/27/17 10/09/24 History
rosuvastatin 20 mg tablet 20 mg PO HS High Cholesterol 10/27/17 10/09/24 History
empagliflozin 25 mg tablet 25 mg PO DAILY Diabetes 11/09/20 10/09/24 History
(Jardiance)
icosapent ethyl 1 gram capsule 2 gm PO BID High Cholesterol 11/09/20 10/09/24 History
(Vascepa)
cholecalciferol (vitamin D3) 25 25 mcg PO DAILY Supplement 09/30/22 10/09/24 History
mcg (1,000 unit) capsule (Vitamin
D3)
clopidogrel 75 mg tablet 75 mg PO DAILY Blood Clot 09/30/22 10/09/24 History
Prevention/Tx
metformin 500 mg tablet,extended 1,000 mg PO DAILY Diabetes 09/30/22 10/09/24 History
release 24 hr
aspirin 81 mg tablet,delayed 81 mg PO DAILY Blood Clot 05/18/23 10/09/24 History
release (Adult Low Dose Aspirin) Prevention/Tx
insulin aspart U-100 100 unit/mL 15 sliding scale dose SC AC 05/18/23 10/09/24 History
(3 mL) subcutaneous pen (Novolog Diabetes
FlexPen U-100 Insulin aspart)
vit C 250 mg-vit E 90 mg-zinc 40 1 tab PO BID Supplement 05/18/23 10/09/24 History
mg-copper 1 [id number]
capsule (PreserVision AREDS-2)
isosorbide mononitrate 30 mg 30 mg PO DAILY #30 tabs 05/23/23 10/09/24 Rx
tablet,extended release 24 hr
furosemide 20 mg tablet (Lasix) 20 mg PO DAILY 10/04/24 10/09/24 History
spironolactone 25 mg tablet 12.5 mg PO DAILY 10/04/24 10/09/24 History
(Aldactone)
insulin glargine 100 unit/mL (3 36 unit SC QPM 10/09/24 10/09/24 History
mL) subcutaneous pen (Lantus
Solostar U-100 Insulin)
Review of Systems
-
History Source: Patient
All other systems: Negative unless noted
Constitutional: Weight Loss
Respiratory: Trouble Breathing
Cardiac: Chest Pain
Abdomen/GI: Other (heartburn)
Physical Exam
Vital Signs
Temp Pulse Resp BP Pulse Ox
98 F 79 23 119/63 98
10/09/24 10:06 10/09/24 13:00 10/09/24 13:00 10/09/24 11:00 10/09/24 13:00
Lab Results
10/09/24 11:20
10/09/24 11:20
Troponin I 0.027 ng/ml 10/09/24 11:20
Cqv-W-Ptnxjpeaeiq Pept 1960 pg/ml 10/09/24 11:20
Physical Exam
General: Well Developed, Well Nourished and No Apparent Distress
HEENT: Normocephalic and Anicteric
Respiratory: Clear and Non Labored Respirations
Cardiac: Regular Rhythm and Murmur (II/ systolic)
Musculoskeletal: Edema (LLE edema)
Skin: Warm and Dry
Neuro: AO x 3
Psych: Calm
Impression / Plan
-
Light-headedness:
-orthos negative
-recent echo with normal EF
-device interrogation: no tachyarrhythmia
CHILDS:
-does not appear obviously volume overloaded to my assessment, despite elevated BNP. CXR okay. Optivol level stable per device nurse. Denies orthopnea/PND.
-CT scan is ordered and pending
Mitral regurgitation, severe:
-in the midst of mitraclip work-up, will discuss with team
-continue lasix
CAD with hx CABG, multiple stents, chronic RCA occlusion:
-continue ASA, plavix, statin, imdur. BB intolerant per chart. Amlodipine stopped for BP.
ICD in place:
-stable, continue to monitor in device clinic
Hx VT:
-treated with ATP previously, BB intolerance, declined amio
HFpEF: chronic
-volume as above
Hx Bio AVR:
-recent echo as noted
Data Reviewed
-
EKG: Tracing Personally Visualized and interpreted (SR with 1st degree AVB)
Radiology: Report Reviewed by me (CXR: No acute disease of the chest.)
Medical Tests (Nuc Med, Echo etc): Report Reviewed by me (TRUMAN: 10/04/24: EF 60-65%. Thickened mitral valve leaflets. Severe mitral regurgitation. There valve does not fully coapt at the medial edge of A2/P2 with an eccentric jet originating from this
region. No mitral stenosis. )
Labs: Labs Reviewed by me
[2024-10-09 16:03] LABS: Troponin I 0.025 ng/ml
[2024-10-09 17:24] LABS: Glucose - Point of Care 92 mg/dl (70-99)
[2024-10-09 17:49] LABS: Troponin I 0.022 ng/ml
--- NOTE | 2024-10-09 18:40 | PTCARENOTE ---
Pt. arrived from the ED around 1700. Pt. walked from the bed to the stretcher with no current complaints. Pt. with order for EKG and trops Q3. EKG obtained, after capturing rhythm alert on EKG machine with STEMI alert. Cardiology consult walked in
and assessed the EKG, no new orders or issues with this EKG. Pt. with no complaints of chest pain or CHILDS stated he felt 'fine.' Two more EKG and trops ordered Q3. Plan of care ongoing. Pt. understands to ring call [facility] is any issues arise.
[2024-10-09] MEDS: LANTUS 0.06 UNITS SC (19:19)
[2024-10-09] MEDS: HEPARIN 5000 UNITS SC (20:51)
[2024-10-09 21:01] LABS: Troponin I 0.016 ng/ml
[2024-10-09 21:05] LABS: Glucose - Point of Care 193 mg/dl (70-99)
[2024-10-09] MEDS: CRESTOR 20 MG PO (21:17)
[2024-10-10] VITALS (13 sets, daily range): BP systolic 100–130; BP diastolic 54–79; BMI 30.5
[2024-10-10] MEDS: SYNTHROID 88 MCG PO (06:07)
[2024-10-10] MEDS: PLAVIX 75 MG PO (07:27)
[2024-10-10] MEDS: ASPIR LOW (ENTERIC COATED) 81 MG PO (07:27)
[2024-10-10] MEDS: LASIX 20 MG PO (07:27)
[2024-10-10] MEDS: FARXIGA 10 MG PO (07:27)
[2024-10-10] MEDS: ALDACTONE 12.5 MG PO (07:28)
[2024-10-10] MEDS: IMDUR (EXTENDED RELEASE) 30 MG PO (07:28)
[2024-10-10] MEDS: HEPARIN 5000 UNITS SC ×2 (07:28→20:53)
[2024-10-10 07:33] LABS: Hematocrit 38.9 % (39.0-52.0); Hemoglobin 12.8 g/dL (13.0-18.0); Mean Corp Hgb Conc. 32.9 g/dL (33.0-37.0); Mean Corpuscular Volume 88.2 fL (80.0-94.0); Mean Platelet Volume 10.2 fL (7.4-10.4); Platelet Count 123 10^3/uL (130-400); Red Blood Cell Count 4.41 10^6/uL (4.70-6.10); Red Cell Dist. Width 13.7 % (11.5-14.5); White Blood Cell Count 5.6 10^3/uL (4.8-10.8)
[2024-10-10 07:37] LABS: Glucose - Point of Care 146 mg/dl (70-99)
[2024-10-10 08:07] LABS: ALT (SGPT) 19 U/L (0-50); AST (SGOT) 25 U/L (17-59); Alkaline Phosphatase 60 U/L (38-126); Blood Urea Nitrogen 40 mg/dl (9-20); Calcium 9.7 mg/dl (8.4-10.2); Carbon Dioxide 26 mmol/L (22-30); Chloride 104 mmol/L (98-107); Estimated Creatinine Clearance 50 ml/min; Glucose 134 mg/dl (70-99); Potassium 5.5 mmol/L (3.5-5.1); Sodium 135 mmol/L (135-145); Total Bilirubin 0.8 mg/dl (0.2-1.3); Total Protein 6.9 g/dl (6.3-8.2); eGFR 55.88
[2024-10-10] MEDS: NOVOLOG FLEXPEN 5 UNITS SC ×2 (08:27→18:41)
--- NOTE | 2024-10-10 10:12 | W.PN.CD ---
Today's Communication / Plan
-
given worsening symptoms, will undergo cardiac cath this admission: later today vs tomorrow based on cath schedule
aldactone stopped due to hyperkalemia
stop imdur in case contributing to dizziness
Impression / Plan
-
Pre-syncope:
-orthos negative
-recent echo with normal EF
-device interrogation: no tachyarrhythmia
-stop aldactone and imdur
Mitral regurgitation, severe:
-symptomatic, with worsening CHILDS
-undergoing MitraClip eval: TRUMAN done 10/04/24
-given worsening symptoms, will undergo cardiac cath this admission: later today vs tomorrow based on cath schedule
Chronic HFPEF
-appears euvolemic: continue lasix 20mg PO daily and SGLT2i
-aldactone stopped due to hyperkalemia
CAD with hx CABG, multiple stents, chronic RCA occlusion:
-continue ASA, plavix, statin
-stop imdur in case contributing to dizziness
ICD in place:
-stable, continue to monitor in device clinic
Hx VT:
-treated with ATP previously, BB intolerance, declined amio
HFpEF: chronic
-volume as above
Hx Bio AVR:
-recent echo as noted
Testing
TRUMAN 10/04/24: EF 60-65%, severe MR, normal TAVR
Physical Exam
Vital Signs/Labs
Vital Signs
Temp Pulse Resp BP Pulse Ox
97.6 F 70 18 107/63 99
10/10/24 07:00 10/10/24 07:27 10/10/24 07:00 10/10/24 07:27 10/10/24 08:30
10/09/24 10/10/24 10/11/24
06:59 06:59 06:59
Actual Weight 90.889 kg
10/10/24 06:51
10/10/24 06:51
10/09/24
11:20
Ahv-Z-Domagqomrtp Pept 1960
LAB Results
10/09/24 10/09/24 10/09/24
11:20 15:17 17:19
Troponin I 0.027 0.025 0.022
10/09/24 10/09/24
20:21 23:01
Troponin I 0.016 D Cancelled
Physical Exam
Constitutional: No acute distress and Comfortable
EENT: Moist mucous membranes
Cardiovascular: Rhythm & rate is regular, Pedal edema is absent, JVD present and Systolic murmur present
Respiratory: Respiratory effort normal and Lungs clear to auscul.
Neuro/Psych: AO x 3
Data Reviewed
-
Date of Service: October 10, 2024
EKG: Other (Tele: A paced and NSR, HR 60-70s)
Labs: Labs Reviewed by me
--- NOTE | 2024-10-10 10:32 | W.PN.HOSP.TC ---
Today's Communication/Plan
-
see plan
Assessment / Plan
Assessment / Plan
Gen: NAD, AAOx3.
Eyes: EOMI, PERRLA, no scleral icterus.
Neck: supple.
CV: RRR, +S1/S2, 2/6 holosytolic murmur
Resp: CTAB, no rales, wheezes, or rhonchi.
Abd: +BS, soft, NT, ND
Skin: No rashes.
Neuro: CN 2-12 intact, non-focal.
Psych: Normal mood and affect.
CHILDS and dizziness/presyncope:
-likely due to severe MR
-orthostatic VS NEG
-cards following
-case discussed with Dr. Escamilla. For cath later today or tomorrow.
-stop Imdur
Chronic HFpEF:
-stop Aldactone with hyperkalemia
-cont Farxiga/Lasix
Other problems:
DM2: Cont Lantus/premeal Novolog/SSI/accuchecks
CKD3a
Hypothyroidism: cont Levoxyl
Chronic mild thrombocytopenia
hx cardiac arrest 05/2023 (in setting of occluded RCA - med management)
VT s/p MDT dual chamber ICD
CAD s/p CABG and multiple PCIs: Note known occluded RCA not amendable to PCI. Stop Imdur in case it's contributing to dizziness.
s/p AVR 2014
Severe MR (currently undergoing eval for Mitraclip)
Total time spent on today's encounter was 50 minutes which included time spent in counseling the patient/family regarding diagnosis and treatment plan as listed above, goals of care, and symptom management. Case was discussed with nursing staff,
specialists, and care coordinators/case management. All labs and imaging personally reviewed by me. Remainder the time spent in detailed review of previous records, lab data, imaging, and other medical provider documentation.
Anticipated Discharge: 24 - 48 hours
Subjective/Interval History
-
Date of Service: October 10, 2024
Denies CP/SOB/lightheadedness.
Objective Data
-
Labs:
Laboratory Results
10/10/24
06:51
WBC 5.6
Hgb 12.8 L
Hct 38.9 L
Plt Count 123 L
Sodium 135
Potassium 5.5 H
Chloride 104
Carbon Dioxide 26
BUN 40 H
Creatinine 1.3
Glucose 134 H
Calcium 9.7
Total Bilirubin 0.8
AST 25
ALT 19
Alkaline Phosphatase 60
Vital Signs:
Vital Signs
Temp Pulse Resp BP Pulse Ox
97.6 F 70 18 107/63 99
10/10/24 07:00 10/10/24 07:27 10/10/24 07:00 10/10/24 07:27 10/10/24 08:30
I&O
10/09/24 10/10/24 10/11/24
06:59 06:59 06:59
Intake Total 240 / 240
Balance 240 / 240
--- NOTE | 2024-10-10 11:29 | CM ---
Patient seen at bedside
IA completed
For cath later today or tomorrow
discussed VN-does not feel he will need.
Patient lives with in 2 story home, 2 steps to enter, 1st floor set up with bed/full bath
PLOF: Independent does not use AD
DME: Walker, cane, commode, transport wc
Has had [facility] in past, denies rehab
Denies insecurities
PCP: Bernabe Madera
Pharmacy: [facility], [place], [place]
PLAN: Home, no needs anticipated
[2024-10-10 11:38] LABS: Glucose - Point of Care 203 mg/dl (70-99)
[2024-10-10] MEDS: NOVOLOG FLEXPEN SC (12:01)
[2024-10-10] MEDS: NOVOLOG FLEXPEN-MODERATE RESISTANCE 2 UNITS SC (12:02)
[2024-10-10] MEDS: KAYEXALATE SUSPENSION 15 GRAMS PO (14:17)
[2024-10-10 18:38] LABS: Glucose - Point of Care 122 mg/dl (70-99)
[2024-10-10] MEDS: NOVOLOG FLEXPEN-MODERATE RESISTANCE SC (18:41)
--- NOTE | 2024-10-10 18:42 | ITS.CL.PN ---
[facility] - Procedure Note
Procedure
Procedure Note:
CARDIAC CATHETERIZATION REPORT
Date of Procedure: 10/10/2024
Referring: Dr. Gigi Escamilla MD, PhD
Indication: concern for acute coronary syndrome
PROCEDURE(S)
1. right heart catheterization
2. bypass graft angiography
3. coronary angiography
ACCESS
1. 6F right femoral artery (closure: Angioseal x1)
2. 5F right antecubital vein (closure: manual hemostasis)
CATHETERS
1. 5F [place]
2. 6F JR4
3. 6F AL1
4. 6F AR2
5. 6F DANITA
MODERATE SEDATION: 45 minutes of moderate sedation was utilized. An independent lead medical technologist was present to assist with and help manage the patient's level of consciousness and physiologic status.
HEMODYNAMIC DATA
AO 113/63 (mean 83) mmHg
RA 13 mmHg
RV 43/2 (EDP 12) mmHg
PA 49/19 (mean 30) mmHg
PCWP 23 (v-wave to 39) mmHg
SaO2 91.1%
SvO2 60.5%
Hb 13.0 g/dL
CO/CI 4.65/2.27 L/min/m2
SVR 1204 dsc*-5
PVR 1.5 Wood units
CORONARY ANGIOGRAPHY
Dominance: Right
LM: severely diseased vessel providing antegrade flow only to a small diagonal branch
LAD: fills via the radial graft to a diminutive apical vessel and retrograde back to a CASH APPLICATIONS ANALYST in the mid-vessel.
LCx: totally occluded. previously filled via the now occluded SVG-OM.
RCA: large vessel with prior stents in the prox to mid vessel with total occlusion within stent. The RPDA fills via the SVG.
BYPASS GRAFT ANGIOGRAPHY:
LORA-LAD: the LORA is taken as a pedicle and forms an anastomosis with the diagonal branch. There is moderate anastomotic disease that is unchanged from prior angiography.
SVG-RPDA: fills the RPDA but does not backfill the remainder of the RCA. There is moderate anastomotic disease that is relatively unchanged from prior.
SVG-OM1: occluded ostially within stent.
Radial-LORA: there is progression of ostial disease compared to 2023 that is now moderate with associated mild pressure dampening on engagement.
RADIATION: dose 496 mGy; DAP 31.2 Gy*cm2; fluoroscopy time 16.5 min
CONCLUSIONS
1. Moderately elevated biventricular filling pressures, moderate pulmonary hypertension, and low normal cardiac output.
2. V-waves to 39 mmHg on pulmonary capillary wedge pressure tracing suggestive of known severe MR
3. Coronary artery disease status post CABG with progression compared to 2023 angiography, specifically new occlusion of the SVG-OM and progression of ostial radial-LORA stenosis.
RECOMMENDATIONS
1. In the setting of normal troponin and atypical symptoms, his coronary disease is not suggestive of an ACS event. The SVG-OM likely occluded chronically and the progressive radial-LORA disease is likely asymptomatic and should be managed medically.
2. Titration of antihypertensives to address orthostatic symptoms
2. Proceed with workup for MitraClip
Copy to: Dr. Gigi Escamilla MD, PhD (template layout worker); Dr. Bernabe Madera, (PCP)
Signed: Maxwell Avila MD, PhD
[2024-10-10 20:52] LABS: Glucose - Point of Care 149 mg/dl (70-99)
[2024-10-10] MEDS: CRESTOR 20 MG PO (20:54)
[2024-10-11 01:31] VITALS: BP 112/63
[2024-10-11 03:31] VITALS: BP 105/60
[2024-10-11 05:20] VITALS: BMI 29.1
[2024-10-11] MEDS: SYNTHROID 88 MCG PO (05:38)
[2024-10-11 06:51] LABS: Hematocrit 39.9 % (39.0-52.0); Hemoglobin 13.5 g/dL (13.0-18.0); Mean Corp Hgb Conc. 33.8 g/dL (33.0-37.0); Mean Corpuscular Hgb 29.4 pg (27.0-31.0); Mean Corpuscular Volume 86.9 fL (80.0-94.0); Mean Platelet Volume 10.3 fL (7.4-10.4); Platelet Count 114 10^3/uL (130-400); Red Blood Cell Count 4.59 10^6/uL (4.70-6.10); Red Cell Dist. Width 13.8 % (11.5-14.5); White Blood Cell Count 8.2 10^3/uL (4.8-10.8)
[2024-10-11 07:00] VITALS: BP 98/55
[2024-10-11 07:17] LABS: Blood Urea Nitrogen 42 mg/dl (9-20); Calcium 9.6 mg/dl (8.4-10.2); Carbon Dioxide 27 mmol/L (22-30); Chloride 104 mmol/L (98-107); Estimated Creatinine Clearance 45 ml/min; Glucose 126 mg/dl (70-99); Sodium 137 mmol/L (135-145); eGFR 55.88
[2024-10-11 07:31] LABS: Glucose - Point of Care 133 mg/dl (70-99)
[2024-10-11] MEDS: LASIX 20 MG PO (09:06)
[2024-10-11] MEDS: FARXIGA 10 MG PO (09:06)
[2024-10-11] MEDS: HEPARIN 5000 UNITS SC (09:06)
[2024-10-11] MEDS: ASPIR LOW (ENTERIC COATED) 81 MG PO (09:06)
[2024-10-11] MEDS: PLAVIX 75 MG PO (09:06)
[2024-10-11] MEDS: NOVOLOG FLEXPEN-MODERATE RESISTANCE SC (09:09)
[2024-10-11] MEDS: NOVOLOG FLEXPEN 5 UNITS SC (09:29)
--- NOTE | 2024-10-11 09:47 | W.PN.CD ---
Today's Communication / Plan
-
Okay for discharge home. Would continue to hold spironolactone and Imdur.
Outpatient MitraClip workup and evaluation.
Impression / Plan
-
Pre-syncope:
-has not had any recurrence after walking with yesterday
-orthos negative
-recent echo with normal EF
-device interrogation: no tachyarrhythmia
-stop aldactone and imdur
Mitral regurgitation, severe:
-symptomatic, with worsening CHILDS
-undergoing MitraClip eval: TRUMAN done 10/04/24
-no clear new CAD to explain likely due to severe mitral regurgitation.
-he will undergo outpatient MitraClip evaluation.
Chronic HFPEF
-Filling pressures slightly up but with severe MR we will first address this before being more aggressive with diuresis.
- Continue lasix 20mg PO daily and SGLT2i
-aldactone stopped due to hyperkalemia
CAD with hx CABG, multiple stents, chronic RCA occlusion:
-continue ASA, plavix, statin
-stop imdur in case contributing to dizziness
ICD in place:
-stable, continue to monitor in device clinic
Hx VT:
-treated with ATP previously, BB intolerance, declined amio
HFpEF: chronic
-volume as above
Hx Bio AVR:
-recent echo as noted
Subjective:
He has chronic dyspnea on exertion which he says has been present for years. Anxious for discharge.
Testing
TRUMAN 10/04/24: EF 60-65%, severe MR, normal TAVR
Cath 10/11/24 Data:
HEMODYNAMIC DATA
AO 113/63 (mean 83) mmHg
RA 13 mmHg
RV 43/2 (EDP 12) mmHg
PA 49/19 (mean 30) mmHg
PCWP 23 (v-wave to 39) mmHg
SaO2 91.1%
SvO2 60.5%
Hb 13.0 g/dL
CO/CI 4.65/2.27 L/min/m2
SVR 1204 dsc*-5
PVR 1.5 Wood units
CORONARY ANGIOGRAPHY
Dominance: Right
LM: severely diseased vessel providing antegrade flow only to a small diagonal branch
LAD: fills via the radial graft to a diminutive apical vessel and retrograde back to a DISK OPERATOR in the mid-vessel.
LCx: totally occluded. previously filled via the now occluded SVG-OM.
RCA: large vessel with prior stents in the prox to mid vessel with total occlusion within stent. The RPDA fills via the SVG.
BYPASS GRAFT ANGIOGRAPHY:
LORA-LAD: the LORA is taken as a pedicle and forms an anastomosis with the diagonal branch. There is moderate anastomotic disease that is unchanged from prior angiography.
SVG-RPDA: fills the RPDA but does not backfill the remainder of the RCA. There is moderate anastomotic disease that is relatively unchanged from prior.
SVG-OM1: occluded ostially within stent.
Radial-LORA: there is progression of ostial disease compared to 2023 that is now moderate with associated mild pressure dampening on engagement.
RADIATION: dose 496 mGy; DAP 31.2 Gy*cm2; fluoroscopy time 16.5 min
CONCLUSIONS
1. Moderately elevated biventricular filling pressures, moderate pulmonary hypertension, and low normal cardiac output.
2. V-waves to 39 mmHg on pulmonary capillary wedge pressure tracing suggestive of known severe MR
3. Coronary artery disease status post CABG with progression compared to 2023 angiography, specifically new occlusion of the SVG-OM and progression of ostial radial-LORA stenosis.
RECOMMENDATIONS
1. In the setting of normal troponin and atypical symptoms, his coronary disease is not suggestive of an ACS event. The SVG-OM likely occluded chronically and the progressive radial-LORA disease is likely asymptomatic and should be managed medically.
2. Titration of antihypertensives to address orthostatic symptoms
2. Proceed with workup for MitraClip
Physical Exam
Vital Signs/Labs
Vital Signs
Temp Pulse Resp BP Pulse Ox
97.7 F 69 18 98/55 98
10/11/24 07:00 10/11/24 09:06 10/11/24 07:00 10/11/24 09:06 10/11/24 07:00
10/10/24 10/11/24 10/12/24
06:59 06:59 06:59
Actual Weight 200 lb 6 oz 191 lb 1.6 oz
10/11/24 06:19
10/11/24 06:19
10/09/24
11:20
Xzd-Q-Slecojkdsoh Pept 1960
LAB Results
10/09/24 10/09/24 10/09/24
11:20 15:17 17:19
Troponin I 0.027 0.025 0.022
10/09/24 10/09/24
20:21 23:01
Troponin I 0.016 D Cancelled
Physical Exam
Constitutional: No acute distress
Cardiovascular: Rhythm & rate is regular and Pedal edema is absent
Respiratory: Respiratory effort normal, Lungs clear to auscul., Wheeze Absent and Crackles Absent
Other: Cath Site (Right femoral artery site well-healed, soft no hematoma.)
Data Reviewed
-
Date of Service: October 11, 2024
Medical Decision Making: Review of Case with other Provider (Dr. Antonina issa to discharge home, Aida Agrawal MitraClip valve coordinator aware of case)
EKG: Other (tele sinus)
--- NOTE | 2024-10-11 09:51 | W.PN.HOSP.TC ---
Today's Communication/Plan
-
d/c
Assessment / Plan
Assessment / Plan
Gen: NAD, AAOx3.
Eyes: EOMI, PERRLA, no scleral icterus.
Neck: supple.
CV: remains RRR, +S1/S2, 2/6 holosytolic murmur
Resp: remains CTAB, no rales, wheezes, or rhonchi.
Abd: +BS, soft, NT, ND
Skin: No rashes.
Neuro: remains CN 2-12 intact, non-focal.
Psych: Normal mood and affect.
Cardiac cath 10/10/24:
1. Moderately elevated biventricular filling pressures, moderate pulmonary hypertension, and low normal cardiac output.
2. V-waves to 39 mmHg on pulmonary capillary wedge pressure tracing suggestive of known severe MR
3. Coronary artery disease status post CABG with progression compared to 2023 angiography, specifically new occlusion of the SVG-OM and progression of ostial radial-LORA stenosis.
CHILDS and dizziness/presyncope:
-likely due to severe MR
-orthostatic VS NEG
-Imdur stopped
-cards following
-cath above
-as per cardiology patient's symptoms are likely not due to acute coronary syndrome, medically management for CAD. Case discussed with Dr. Avila who felt that new 100% occlusion of SVG-OM was chronic and not acute.
Chronic HFpEF:
-Aldactone stopped with hyperkalemia
-cont Farxiga/Lasix
Other problems:
DM2: Cont Lantus/premeal Novolog/SSI/accuchecks
CKD3a
Hypothyroidism: cont Levoxyl
Chronic mild thrombocytopenia
hx cardiac arrest 05/2023 (in setting of occluded RCA - med management)
VT s/p MDT dual chamber ICD
CAD s/p CABG and multiple PCIs: Note known occluded RCA not amendable to PCI. cont ASA/plavix/statin
s/p AVR 2014
Severe MR (currently undergoing eval for Mitraclip)
Medically cleared for discharge as per discussion with cardiology.
Total time spent on d/c = 32 min. This included today's physical exam, progress note, review of laboratory and diagnostic data, preparation of discharge documents and prescriptions, and discussions about the pt's hospital course and discharge plan
with the patient and other medical librarian involved in the patient's care.
Anticipated Discharge: Today
Subjective/Interval History
-
Date of Service: October 11, 2024
Denies CP/SOB/lightheadedness.
Objective Data
-
Labs:
Laboratory Results
10/11/24
06:19
WBC 8.2
Hgb 13.5
Hct 39.9
Plt Count 114 L
Sodium 137
Potassium 5.0
Chloride 104
Carbon Dioxide 27
BUN 42 H
Creatinine 1.3
Glucose 126 H
Calcium 9.6
Vital Signs:
Vital Signs
Temp Pulse Resp BP Pulse Ox
97.7 F 69 18 98/55 98
10/11/24 07:00 10/11/24 09:06 10/11/24 07:00 10/11/24 09:06 10/11/24 07:00
I&O
10/10/24 10/11/24 10/12/24
06:59 06:59 06:59
Intake Total 240 / 240 720 / 720
Output Total 500 / 500
Balance 240 / 240 220 / 220
--- NOTE | 2024-10-11 10:06 | CM ---
Addendum entered by Lily Orellana 10/11/24 11:55:
Patient discharged today
in room & will transport home
no needs
Original Note:
Patient seen at bedside
cardiac cath completed
IMM explained & signed. In chart
PLAN: Home when stable, no needs anticipated, CM to continue to follow
[2024-10-11 10:59] VITALS: BP 113/57
--- NOTE | 2024-10-11 13:56 | W.DCSUMMARY ---
Discharge Summary
Discharge Data
Date of Admission: 10/09/24
Date of Discharge: 10/11/24
-
Pending Results: No
Hospital Course
Primary diagnoses:
Dizziness, dyspnea on exertion, and near syncope likely due to hypotension related to severe mitral regurgitation
Secondary diagnoses:
Chronic heart failure with preserved ejection fraction
Type 2 diabetes mellitus
Chronic kidney disease 3a
Hypothyroidism
Chronic mild thrombocytopenia
hx cardiac arrest 05/2023 (in setting of occluded RCA)
Ventricular tachycardia s/p Medtronic dual chamber ICD
Coronary artery disease s/p coronary artery bypass grafting and multiple PCIs (note known occluded RCA not amendable to PCI)
Aortic stenosis s/p aortic valve replacement 2014
Severe mitral regurgitation (currently undergoing eval for Mitraclip)
Consultants:
Cardiology
Imaging:
Cardiac cath 10/10/24:
1. Moderately elevated biventricular filling pressures, moderate pulmonary hypertension, and low normal cardiac output.
2. V-waves to 39 mmHg on pulmonary capillary wedge pressure tracing suggestive of known severe MR
3. Coronary artery disease status post CABG with progression compared to 2023 angiography, specifically new occlusion of the SVG-OM and progression of ostial radial-LORA stenosis.
Hospital course: 78-year-old male who presented with chief complaints of dizziness, dyspnea on exertion, near syncope as outlined in the H&P done on admission. The patient's orthostatic vital signs were negative. His blood pressure was low and his
Imdur was stopped for this reason. Also his Aldactone was stopped due to hyperkalemia. The patient had a cardiac catheterization as above. His symptoms resolved while hospitalized. As per cardiology the patient's symptoms are likely not due to
acute coronary syndrome, medically management for CAD. Case discussed with Dr. Avila who felt that new 100% occlusion of SVG-OM was chronic and not acute. The patient's presenting symptoms were likely due to the patient's severe mitral
regurgitation. The patient was discharged in medically stable condition.
Discharge Plan
-
Patient Disposition: Home (Routine Discharge)
Discharge Diagnosis/Procedures: Dizziness, dyspnea on exertion, and near syncope likely due to hypotension related to severe mitral regurgitation, cardiac cath 10/10/24
Condition: Good
Diet: Low Cholesterol and Other diet
Additional Diets: fluid restrict to 1500cc/day
Activity: As tolerated
Driving Restrictions: No driving for 24 hours
Specialty Instructions: Weigh Daily- Call MD for wt gain/loss 3 lbs overnight/5 lbs in 1 week
Stand Alone Forms: DC Instructions- Cath/EP Lab
Referrals:
Roberta Casillas CRNP [Specified Professional Personl, Cardiology] - 10/25/24 3:40 pm
Bernabe Madera MD [Family Provider, Internal Medicine]
Prescriptions:
Continued
magnesium oxide 250 MG tablet
250 mg PO QPM
nitroglycerin 0.4 MG tablet, sublingual
0.4 mg sublingual [id number] PRN (Reason: chest pain)
levothyroxine 88 MCG tablet
88 mcg PO DAILY
rosuvastatin 20 MG tablet
20 mg PO HS
icosapent ethyl [Vascepa] 1 GM capsule
2 gm PO BID
Jardiance 25 MG tablet
25 mg PO DAILY
cholecalciferol (vitamin D3) [Vitamin D3] 25 mcg (1,000 unit) Capsule
25 mcg PO DAILY
metformin 500 mg tablet extended release 24 hr
1,000 mg PO DAILY
clopidogrel 75 MG tablet
75 mg PO DAILY
aspirin [Adult Low Dose Aspirin] 81 mg Tablet,Delayed Release (Dr/Ec)
81 mg PO DAILY
insulin aspart U-100 [Novolog FlexPen U-100 Insulin] 100 unit/mL (3 mL) Insulin Pen
15 sliding scale dose SC AC
PreserVision AREDS-2 250-90-40-1 mg Capsule
1 tab PO BID
furosemide [Lasix] 20 mg Tablet
20 mg PO DAILY
insulin glargine [Lantus Solostar U-100 Insulin] 100 unit/mL (3 mL) Insulin Pen
36 unit SC QPM
Discontinued
spironolactone [Aldactone] 25 mg Tablet
12.5 mg PO DAILY
isosorbide mononitrate 30 mg tablet extended release 24 hr
30 mg PO DAILY
Discharge Orders:
Discharge Patient (As Directed); Ordered 10/11/24
Ordered By: Etienne Sarkar
Discharge Date and Time
Discharge Date/Time: 10/11/24 13:34
Print Language: GREEK
== END 2024-10-11 13:34 | disposition home or self-care (01) | DRG 287 ==
LOC: 3 WEST ACU 14:09
PROVIDERS: Internal Medicine; Nurse Practitioner Adult Health; Student in an Organized Health Care Education/Training Program; ADMITTING PHYSICIAN Internal Medicine; ATTENDING PHYSICIAN Internal Medicine; EMERGENCY PHYSICIAN Student in an Organized Health Care Education/Training Program; FAMILY PHYSICIAN Internal Medicine; OTHER PHYSICIAN Nurse Practitioner Adult Health
PROC: 4B02XTZ Measurement of Cardiac Defibrillator, External Approach (ICD-10-PCS; 2024-10-09)
PROC: B2111ZZ Fluoroscopy of Multiple Coronary Arteries using Low Osmolar Contrast (ICD-10-PCS; 2024-10-10)
PROC: B2131ZZ Fluoroscopy of Multiple Coronary Artery Bypass Grafts using Low Osmolar Contrast (ICD-10-PCS; 2024-10-10)
PROC: 4A023N6 Measurement of Cardiac Sampling and Pressure, Right Heart, Percutaneous Approach (ICD-10-PCS; 2024-10-10)
DX: I34.0 Nonrheumatic mitral (valve) insufficiency (principal); I13.0 Hypertensive heart and chronic kidney disease with heart failure and stage 1 through stage 4 chronic kidney disease, or unspecified chronic kidney disease; I50.32 Chronic diastolic (congestive) heart failure; I25.810 Atherosclerosis of coronary artery bypass graft(s) without angina pectoris; I25.10 Atherosclerotic heart disease of native coronary artery without angina pectoris; E11.65 Type 2 diabetes mellitus with hyperglycemia; N18.31 Chronic kidney disease, stage 3a; D64.9 Anemia, unspecified; E03.9 Hypothyroidism, unspecified; D69.6 Thrombocytopenia, unspecified; E87.5 Hyperkalemia; I27.20 Pulmonary hypertension, unspecified; E78.00 Pure hypercholesterolemia, unspecified; E11.22 Type 2 diabetes mellitus with diabetic chronic kidney disease; K21.9 Gastro-esophageal reflux disease without esophagitis; I25.2 Old myocardial infarction; Z86.79 Personal history of other diseases of the circulatory system; Z95.1 Presence of aortocoronary bypass graft; Z95.5 Presence of coronary angioplasty implant and graft; Z95.810 Presence of automatic (implantable) cardiac defibrillator; Z95.2 Presence of prosthetic heart valve; Z79.890 Hormone replacement therapy; Z79.84 Long term (current) use of oral hypoglycemic drugs; Z79.82 Long term (current) use of aspirin; Z79.4 Long term (current) use of insulin; Z88.5 Allergy status to narcotic agent; Z91.048 Other nonmedicinal substance allergy status; Z79.02 Long term (current) use of antithrombotics/antiplatelets; Z86.74 Personal history of sudden cardiac arrest
CPT/HCPCS: 71046; 71275; 80048; 80053; 82962; 83880; 84484; 85025; 85027; 93005; 93288; 93457; 99152; 99153; 99285; C1760; C1769; C1894; Q9967

== ENCOUNTER 2024-10-23 16:43 | Inpatient (IN) | payer MEDICARE, BC, SELFPAY ==
[2024-10-23] VITALS (14 sets, daily range): BP systolic 76–107; BP diastolic 56–70
--- NOTE | 2024-10-23 15:17 | ED.GENMED ---
Addendum entered and electronically signed by Matthew Jackson MD 10/23/24 16:20:
After initial admission discussion with hospitalist the lab called back patient's troponin critically elevated at 3.75. Was negative during admission 2 weeks ago. He is not having any chest pain. He has been having exertional dyspnea. Will treat
with full dose aspirin. Started on heparin infusion. Updated cardiology.
Original Note:
History of Present Illness
General
Chief Complaint: Blood Pressure Problem
Source: patient
Exam Limitations: none
Time Seen by Provider: 10/23/24 12:21
Nursing documentation reviewed up to this point in time: agreed with
History of Present Illness
History of Present Illness:
78-year-old male with history as noted presents to the ER for evaluation of hypotension and shortness of breath. He had a recent admission 10/09 until 10/11 for syncope felt to be secondary to mitral regurgitation. He follows with Dr. Escamilla for
cardiology. He has a known history of CHF as well and has been on fluid restriction 1500 cc a day. He takes Lasix 20 mg daily. His reports that she has been regularly checking his blood pressures since discharge. He has had some increasing
shortness of breath with exertion over the past few days. Today when she was checking his blood pressures they were significantly low with values in the 60s and 70s systolic all morning. He was having worsening shortness of breath this morning.
called EMS to bring her to the hospital be evaluated. Patient has not had any chest pain. Slight swelling in the legs left greater than right which is chronic status post venous graft harvest from left leg. He has chronic mild cough
productive of clear sputum. No GI symptoms except for some posttussive scant emesis this morning; no abdominal pain or diarrhea. No fever or chills. No other complaints noted.
Past History
Past History
ED Past Medical History: CAD, GERD, HTN, Hypercholesterolemia, NIDDM, [place], Hypothyroidism and Other (Anemia)
ED Past Surgical History: Cardiac (CABG, aortic valve replacement, PTCA with stents) and Other (Left carotid endarterectomy)
Social History
Tobacco: Non-smoker
Alcohol: None
Drug: None
Personal:
Living: with family
Employment: Retired
Family History
Family History: Other (Noncontributory)
Review of Systems
Review of Systems
All Other Systems: ROS reviewed and negative except as documented in HPI and ROS
Constitutional: Denies fever or chills
Respiratory: Reports cough and trouble breathing
Cardiac: Denies chest pain or palpitations
ABD/GI: Reports vomiting (Scant posttussive episode today); Denies abdominal pain, nausea or diarrhea
: Denies flank pain
Musculoskeletal: Reports edema; Denies neck pain or back pain
Neurological: Denies dizzy or headache
Phy Exam
Physical Exam
Physical Exam:
General: Awake, alert, oriented x3; no acute distress
Head: Normocephalic, atraumatic
Eyes: Conjunctiva normal, sclera anicteric
Throat: Airway intact, handling secretions
Neck: Trachea midline, no JVD
Lungs: Faint rales at the lung bases right slightly greater than left
Heart: Regular rate and rhythm, systolic murmur
Abd: Soft, non distended, nontender
Neuro: No gross deficits
Skin: no rash
Extremities: Trace edema on the legs left greater than right; good pulses throughout
Scores
Heart Score for Chest Pain Patients
STEMI patient?: Not applicable
Withdrawal Assessment of Alcohol
Withdrawal Assessment Completed?: Not applicable
Course
Orders/Labs/Results
Orders:
Orders
10/23/24 12:21
Electrocardiogram (*1) Urgent
Reason for Study: Fatigue / Weakness
10/23/24 12:22
Electrocardiogram (*1) Urgent
Reason for Study: QTc Monitoring
EKG- Treatment ONCE
EKG- Treatment ONCE
Interrogate Pacemaker- Treatment ONCE
10/23/24 14:58
CR Chest Portable - 1 View Urgent
Comment:
Reason For Exam: sob
Reason Study Needs to be Portable: Unable to Transport
10/23/24 14:59
CMP [Comprehensive Metabolic Panel] Urgent
Complete Blood Count/With Diff Urgent
Magnesium Urgent
NT-proBNP Urgent
Phosphorus Urgent
Comment: ADD ON
Troponin I Urgent
Comment: ADD ON
10/23/24 15:19
Urinalysis Urgent
Date Specimen was Collected: 10/23/24
Time Specimen was Collected: 15:18
10/23/24 15:21
CARDIOLOGY CONSULT Urgent
Consulting Provider: Dwayne Escamilla
Was physician already notified: Yes
10/23/24 15:39
Add On- LAB Urgent
Tests Added?: troponin
10/23/24 15:42
Add On- LAB Urgent
Tests Added?: Magnesium level, Phosphorus level
10/23/24 15:44
Ionized Calcium Urgent
Calcium Gluconate 1,000 mg IV NOW STA
Abnormal Lab Results
10/23/24
14:59
RBC 4.15 L 10^6/uL
(4.70-6.10)
Hgb 12.3 L g/dL
(13.0-18.0)
Hct 36.4 L %
(39.0-52.0)
Absolute Neuts (auto) 7.6 H 10^3/uL
(1.4-6.5)
Absolute Lymphs (auto) 0.9 L 10^3/uL
(1.2-3.4)
Absolute Monos (auto) 0.8 H 10^3/uL
(0.1-0.6)
Neutrophils % 80.4 H %
(42.2-75.2)
Lymphocytes % 9.7 L %
(20.5-51.1)
Chloride 119 H mmol/L
(98-107)
Carbon Dioxide 16 L mmol/L
(22-30)
BUN 42 H mg/dl
(9-20)
Calcium 6.4 L* mg/dl
(8.4-10.2)
Total Protein 4.7 L g/dl
(6.3-8.2)
Albumin 2.3 L g/dl
(3.5-5.0)
10/23/24 14:59
10/23/24 14:59
Vital Signs
Initial and Last Documented VS:
Initial Vital Signs
BP
107/66
10/23/24 12:21
Last Documented Vital Signs
Temp Pulse Resp BP Pulse Ox
36.7 C 83 25 91/62 99
10/23/24 12:23 10/23/24 15:30 10/23/24 15:30 10/23/24 15:00 10/23/24 15:30
MDM/Problems Addressed
Differential Diagnosis Includes:
CHF, pneumonia, anemia, deconditioning, low suspicion for PE clinically without chest pain or tachycardia or hypoxia
MDM/Problems Addressed:
78-year-old male with history as noted presents to the ER for evaluation of shortness of breath on exertion as well as recent hypotension. Vitals and exam as above. Blood pressure in triage 107/66�during my assessment blood pressure 91/43. Heart
rate 80s to 90s, mild tachypnea in triage normalized by my assessment while at rest. Pulse ox acceptable on room air. Physical exam as documented. His EKG sinus rhythm no acute ischemia. Similar to prior. Plan to place an IV check labs
including CBC CMP, proBNP. Will check chest x-ray. Case discussed with cardiology for consultation.
Labs reviewed: CBC shows stable marginal anemia, CMP was significant for non-anion gap metabolic acidosis with bicarb of 16. Significant hypocalcemia with a calcium of 6.4. Magnesium normal. Potassium acceptable. Will provide IV calcium
repletion. Chest x-ray reviewed by me does show some mild vascular congestion and edema. Given his electrolyte derangements held off on emergent diuresis pending repletion of calcium. Case discussed with cardiology recommended hospitalist
admission they will consult on patient to provide guidance regarding fluid restriction and diuretic dose given some symptoms and findings concerning for CHF with associated hypotension. Case discussed with hospitalist for admission.
Chronic conditions affecting care:
Mitral regurgitation, CHF
*Radiology
Radiology exam reviewed: preliminary read by ED provider
*Pulse Oximetry
SaO2: 95
Oxygen Mode of Delivery: Room air
Patient hypoxic: no (95%)
*EKG
Interpreted by ED Provider?: Yes
Heart Rate: 91
Rate: normal
Rhythm: sinus
[place]: left axis deviation
Interval: first degree heart block
QRS Pattern: normal QRS
Ischemia: non-specific ST changes
*Critical Care Note
Total Time (30-74mins, 75-104mins- exclusive of procedures): Not Applicable
Data Reviewed
Review of Other/Old Records Reveals: Labs, Records and Testing (Reviewed cardiac cath)
Source: patient and records
Prescriptions/Medications Considered But Not Given:
Considered IV Lasix but held off pending electrolyte repletion
Patient Management
Discussion with other providers: Hospitalist (Discussed with hospitalist) and Fire Protection Fabricator (Discussed with cardiology)
Escalation/DeEscalation of care consider admission/obs:
Admission indicated
ED Attending Note
-
Portions of this chart may have been created with voice recognition software.� Occasional wrong word or��sound alike� substitutions may have occurred due to the inherent limitations of voice recognition software.
Discharge Plan
Departure
Patient Disposition: Admit
Date of Disposition: 10/23/24
Time of Disposition: 15:46
Admit to doctor: José Miguel
Presentation/result/management discussed w/ accepting MD/DO: Hospitalist
Discharge Problem:
CHF (congestive heart failure), Hypotension, Hypocalcemia
Prescriptions:
No Action
magnesium oxide 250 MG tablet
250 mg PO QPM
nitroglycerin 0.4 MG tablet, sublingual
0.4 mg sublingual [id number] PRN (Reason: chest pain)
levothyroxine 88 MCG tablet
88 mcg PO DAILY
rosuvastatin 20 MG tablet
20 mg PO HS
icosapent ethyl [Vascepa] 1 GM capsule
2 gm PO BID
Jardiance 25 MG tablet
25 mg PO DAILY
cholecalciferol (vitamin D3) [Vitamin D3] 25 mcg (1,000 unit) Capsule
25 mcg PO DAILY
metformin 500 mg tablet extended release 24 hr
1,000 mg PO DAILY
clopidogrel 75 MG tablet
75 mg PO DAILY
aspirin [Adult Low Dose Aspirin] 81 mg Tablet,Delayed Release (Dr/Ec)
81 mg PO DAILY
insulin aspart U-100 [Novolog FlexPen U-100 Insulin] 100 unit/mL (3 mL) Insulin Pen
15 sliding scale dose SC AC
PreserVision AREDS-2 250-90-40-1 mg Capsule
1 tab PO BID
furosemide [Lasix] 20 mg Tablet
20 mg PO DAILY
insulin glargine [Lantus Solostar U-100 Insulin] 100 unit/mL (3 mL) Insulin Pen
36 unit SC QPM
Referrals:
Bernabe Madera MD [Family Provider, Internal Medicine]
Interventions
Interventions:
*Risk Screen - Suicide Last Done: 10/23/24 12:23
*General Assessment Last Done: 10/23/24 12:23
*Neglect/Abuse Screening Last Done: 10/23/24 12:23
Discharge Date and Time
Print Language: TURKMEN
[2024-10-23 15:25] LABS: % Basophils 0.4 % (0-2); % Eosinophils 0.3 % (0-6); % Immature Granulocytes 0.4 % (0-0.5); % Lymphocytes 9.7 % (20.5-51.1); % Monocytes 8.8 % (1.7-9.3); % Neutrophils 80.4 % (42.2-75.2); Absolute Lymphocytes 0.9 10^3/uL (1.2-3.4); Absolute Monocytes 0.8 10^3/uL (0.1-0.6); Absolute Neutrophils 7.6 10^3/uL (1.4-6.5); Hematocrit 36.4 % (39.0-52.0); Hemoglobin 12.3 g/dL (13.0-18.0); Mean Corp Hgb Conc. 33.8 g/dL (33.0-37.0); Mean Corpuscular Hgb 29.6 pg (27.0-31.0); Mean Corpuscular Volume 87.7 fL (80.0-94.0); Nucleated Red Blood Cells % 0 % (-); Platelet Count 134 10^3/uL (130-400); Red Blood Cell Count 4.15 10^6/uL (4.70-6.10); Red Cell Dist. Width 14.5 % (11.5-14.5); White Blood Cell Count 9.5 10^3/uL (4.8-10.8)
[2024-10-23 15:41] LABS: ALT (SGPT) 14 U/L (0-50); AST (SGOT) 23 U/L (17-59); Albumin 2.3 g/dl (3.5-5.0); Alkaline Phosphatase 42 U/L (38-126); Blood Urea Nitrogen 42 mg/dl (9-20); Calcium 6.4 mg/dl (8.4-10.2); Carbon Dioxide 16 mmol/L (22-30); Chloride 119 mmol/L (98-107); Glucose 96 mg/dl (70-99); Potassium 3.6 mmol/L (3.5-5.1); Sodium 137 mmol/L (135-145); Total Bilirubin 0.6 mg/dl (0.2-1.3); Total Protein 4.7 g/dl (6.3-8.2); eGFR > 60.00
[2024-10-23 15:46] LABS: NT-proBNP 9710 pg/ml
[2024-10-23 15:49] LABS: Urine Albumin 3+ (Neg - Trace); Urine Bilirubin Negative (Negative); Urine Character Clear (Clear); Urine Color Yellow; Urine Glucose 4+ (Negative); Urine Ketone Negative (Negative); Urine Leukocyte Negative (Negative); Urine Nitrite Negative (Negative); Urine Occult Blood 1+ (Negative); Urine Urobilinogen Negative (Neg - 1+)
--- NOTE | 2024-10-23 15:58 | HPS.HSE ---
Addendum entered and electronically signed by Kory Ray MD 10/23/24 17:11:
Seen and examined by me independently in collaboration with the nurse practitioner Ponce.
Past medical history/social history/medication/allergies reviewed.
Lab data and imaging data reviewed.
Patient with below past medical history was admitted to [facility] from 10/09/2024 to 10/11/2024 for dizziness shortness of breath with exertion and near syncope secondary to hypotension related to severe mitral regurgitation. He was referred
for mitral valve clipping which is yet to happen per .
Since discharge he has been having lightheaded, weakness and almost near syncope. He was also having exertional shortness of breath. found the blood pressure was low on multiple occasions so came to the hospital. He is at rest comfortable
without any tachypnea or short of breath. Not hypoxic at rest. He has bilateral basilar crackles without wheeze. No lower extremity edema. thinks he might of gained 4 pounds but today is ER weight if it is true is way higher than that..
His chest x-ray shows CHF. His BNP is elevated.
His cardiac cath 10/10 showed wedge pressure of 23 and cardiac index of 2.27, there was moderately elevated biventricular filling pressures. There was a V waves of 39 mmHg suggestive of severe MR.
Based on the current data he seems to be in acute on chronic heart failure. But blood pressure is low to start diuretics. Might need vasopressors. He is not an extremis at the current point so hold on diuretics and consult cardiology. Admit to
IVU
He also noted to have positive troponins of 3.7 without symptoms of chest pains or palpitations. His cardiac catheterization showed progression of CAD especially new occlusion of the SVG to OM and progression of ostial radial to LORA stenosis. It
was felt that SVG to OM likely occluded chronically and progression of radial to LORA disease is likely asymptomatic at that point and should be managed medically. With a new troponin leak cardiology to rule look at coronary anatomy and
interventions as appropriate. In the meantime continue with aspirin Plavix and statin IV heparin.
Lastly he is hypocalcemic for some reason. He is known to have vitamin D deficiency on supplementation. Check vitamin D levels and also PTH. He did receive IV calcium gluconate in the ER. Check also phosphorus and follow BMP for now.
Discussed with at bedside regarding above plan.
Discussed with Dr. Hernandez cardiology on-call regarding the plan.
Patient wishes to be full code.
Original Note:
Family Physician
-
Family Physician: Bernabe Madera
Chief Complaint
-
sob
hypotension
History of Present Illness
78-year-old male with history of coronary artery disease, type 2 diabetes, iron deficiency anemia, GI bleed, dyslipidemia, hypertension, CHF as noted presents to the ER for evaluation of hypotension and shortness of breath. Patient stated low blood
pressure for past 1 week. He was also noted to have shortness of breath which is worse with exertion for past 1 week. Patient gained 4 pounds in 3 days. Patient has chronic lower extremities edema. Patient stated weak. Denied headache or dizzy
or syncope. Patient denied any fever, chills, cough, congestion. Patient denied abdominal pain, nausea, vomiting or diarrhea. He denied dysuria hematuria.
Patient was admitted here from [id number] with dizzy and short of breath which was thought to be secondary to hypotension related to Sever mitral regurgitation. His spironolactone and isosorbide were held upon discharge.
Upon arrival his blood pressure is soft. He was also noted to have a low calcium for which he was supplemented with IV calcium
Medical History
Past Medical History
Past Medical History: Reports Other
Additional Past Medical History:
Coronary artery disease
Type 2 diabetes
Iron deficiency anemia
GI bleed
Dyslipidemia
Bilateral carotid stenosis
MCQUEEN
Cirrhosis
Hypertension
CHF
Past Surgical History: Reports Other
Additional Past Surgical History:
Coronary artery bypass graft with 8 stents
Open heart with valve replacement
Bilateral cataract surgery
Cardiac stents
Social History
Tobacco: Non-smoker
Alcohol: None
Drug: None
Personal:
Living: With Family
Family History
Family History: Not pertinent
Allergies / Home Medications
Allergies reflects when Allergies were last updated in [facility].
Home Medications with original date entered in [facility]
Allergy/Medication List:
Allergies
Allergy/AdvReac Type Severity Reaction Status Date / Time
adhesive tape Allergy Rash Verified 10/09/24 10:10
morphine Allergy vasovagal Verified 10/09/24 10:10
when in
conjunction
with
nitroglycerine
per pt
Home Medications
magnesium oxide 250 mg PO QPM Supplement 06/11/14
rosuvastatin 20 mg tablet 20 mg PO HS High Cholesterol 10/27/17
empagliflozin 25 mg tablet (Jardiance) 12.5 mg PO DAILY Diabetes 11/09/20
icosapent ethyl 1 gram capsule (Vascepa) 2 gm PO BID High Cholesterol 11/09/20
cholecalciferol (vitamin D3) 25 mcg (1,000 unit) capsule (Vitamin D3) 25 mcg PO DAILY Supplement 09/30/22
clopidogrel 75 mg tablet 75 mg PO DAILY Blood Clot Prevention/Tx 09/30/22
metformin 500 mg tablet,extended release 24 hr 1,000 mg PO DAILY Diabetes 09/30/22
aspirin 81 mg tablet,delayed release (Adult Low Dose Aspirin) 81 mg PO DAILY Blood Clot Prevention/Tx 05/18/23
insulin aspart U-100 100 unit/mL (3 mL) subcutaneous pen (Novolog FlexPen U-100 Insulin aspart) 0 sliding scale dose SC AC Diabetes 05/18/23
vit C 250 mg-vit E 90 mg-zinc 40 mg-copper 1 [id number] capsule (PreserVision AREDS-2) 1 tab PO BID Supplement 05/18/23
furosemide 20 mg tablet (Lasix) 20 mg PO DAILY 10/04/24
insulin glargine 100 unit/mL (3 mL) subcutaneous pen (Lantus Solostar U-100 Insulin) 0 unit SC HS Diabetes 10/09/24
levothyroxine 88 mcg tablet (Synthroid) 88 mcg PO DAILY 10/23/24
Review of Systems
-
Constitutional: Reports Weight Gain
Respiratory: Reports Trouble Breathing
Cardiac: Reports No Symptoms
Abdomen/GI: Reports No Symptoms
: Reports No Symptoms
Musculoskeletal: Reports No Symptoms
Skin: Reports No Symptoms
Neurological: Reports No Symptoms
Endocrine: Reports No Symptoms
Hematologic/Lymphatic: Reports No Symptoms
Psych: Reports No Symptoms
Physical Exam
Vital Signs
Vital Signs
Temp Pulse Resp BP Pulse Ox
98.1 F 83 25 91/62 99
10/23/24 12:23 10/23/24 15:30 10/23/24 15:30 10/23/24 15:00 10/23/24 15:30
Physical Exam
General: Well Developed, Well Nourished and No Apparent Distress
HEENT: NormoCephalic, Moist mucous membranes and Atraumatic
Respiratory: Clear
Cardiac: S1/S2 and Regular Rhythm; No Murmur or Rub
GI: Soft, Non Tender, Non Distended and Normal Bowel Sounds; No Organomegaly
Rectal: Deferred by Provider
Musculoskeletal: No Clubbing, No Cyanosis and Other
Skin: No Rash
Neuro: AO x 3 and Nonfocal/grossly intact
Psych: Calm
Laboratory Results
-
10/23/24 14:59
10/23/24 14:59
Laboratory Results
Total Bilirubin 0.6 mg/dl (0.2-1.3) 10/23/24 14:59
AST 23 U/L (17-59) 10/23/24 14:59
ALT 14 U/L (0-50) 10/23/24 14:59
Alkaline Phosphatase 42 U/L (38-126) 10/23/24 14:59
Troponin I Cancelled 10/23/24 15:25
Data Reviewed
-
Lab Data: Labs Reviewed by me
Impression/Plan
-
# Hypotension unclear cause
- Continue to hold all hypertensive
# Hypocalcemia
- IV calcium in ER
- Ionized calcium pending
-PTH in am
# Possible CHF exacerbation
- BNP 9710
- Chest x-ray mild interstitial pulmonary edema
- Strict ABHISHEK, daily weight fluid restriction
- IV diuretics as per cardiology
- Cardiology consulted
#elevated trop NSTEMI
-trop 3.750
-asa continued
-heparin continued
# Metabolic acidosis likely from CHF/diuretics
- CO2 16
-CTM
# Hyperlipidemia
- Rosuvastatin, Vascepa continued
#DM2: Cont Lantus/premeal Novolog/SSI/accuchecks
-Hold metformin and Jardiance
#Hypothyroidism: cont Levoxyl
#hx cardiac arrest 05/2023 (in setting of occluded RCA - med management)
#VT s/p MDT dual chamber ICD
#CAD s/p CABG and multiple PCIs: Note known occluded RCA not amendable to PCI. cont ASA/plavix/statin
# s/p AVR 2014
#Severe MR (currently undergoing eval for Mitraclip)
-Aspirin and Plavix continued
# DVT prophylaxis
-heparin
# CODE STATUS
-full code
-
[2024-10-23 16:01] LABS: Phosphorus 2.7 mg/dl (2.5-4.5)
[2024-10-23 16:05] LABS: Urine Squamous Cell 0-2 /LPF (Few)
[2024-10-23 16:08] LABS: Urine Bacteria Moderate (Negative); Urine Red Blood Cell 0-2 /HPF (0-2)
[2024-10-23] MEDS: CALCIUM GLUCONATE 1000 MG IV (16:16)
[2024-10-23 17:10] LABS: Ionized Calcium 1.27 mMOL/L (1.15-1.33)
[2024-10-23] MEDS: LOW STRENGTH ASPIRIN 324 MG PO (17:15)
--- NOTE | 2024-10-23 17:16 | CON.CAR ---
Consultation
Consultation Request
Date/Time Consultation Requested: 10/23/24, 3pm
Date/Time Consultation Performed: 10/23/24, 4pm
Requesting Provider: Cory
Performing Provider: Andi
Reason for Consultation: SOB/CHILDS
Medical History
-
Chief Complaint: SOB, low blood pressure
History of Present Illness:
78 y/o male with hx cardiac arrest 05/2023 (in setting of occluded RCA - med management), VT s/p MDT dual chamber ICD, CAD s/p CABG and multiple PCIs, s/p AVR 2014, severe MR undergoing MitraClip evaluation. He presents to ED with low BP and
worsening CHILDS. There is no chest pain. There is no edema.
Past Medical History
Past Medical History: Arrhythmias (VT), CAD, CHF (chronic HFPEF), HTN, Hypercholesterolemia, FL and Valvular Disease
Past Surgical History: Cardiac (CABG, bio-AVR)
Social History
Tobacco: Non-Smoker
Family History
Family History: Early CAD (none)
Allergies / Home Medications
Allergy/AdvReac Type Severity Reaction Status Date / Time
adhesive tape Allergy Rash Verified 10/09/24 10:10
morphine Allergy vasovagal Verified 10/09/24 10:10
when in
conjunction
with
nitroglycerine
per pt
�Medication �Instructions �Recorded �Confirmed �Type
magnesium oxide 250 mg PO QPM Supplement 06/11/14 10/23/24 History
rosuvastatin 20 mg tablet 20 mg PO HS High Cholesterol 10/27/17 10/23/24 History
empagliflozin 25 mg tablet 12.5 mg PO DAILY Diabetes 11/09/20 10/23/24 History
(Jardiance)
icosapent ethyl 1 gram capsule 2 gm PO BID High Cholesterol 11/09/20 10/23/24 History
(Vascepa)
cholecalciferol (vitamin D3) 25 25 mcg PO DAILY Supplement 09/30/22 10/23/24 History
mcg (1,000 unit) capsule (Vitamin
D3)
clopidogrel 75 mg tablet 75 mg PO DAILY Blood Clot 09/30/22 10/23/24 History
Prevention/Tx
metformin 500 mg tablet,extended 1,000 mg PO DAILY Diabetes 09/30/22 10/23/24 History
release 24 hr
aspirin 81 mg tablet,delayed 81 mg PO DAILY Blood Clot 05/18/23 10/23/24 History
release (Adult Low Dose Aspirin) Prevention/Tx
insulin aspart U-100 100 unit/mL 0 sliding scale dose SC AC Diabetes 05/18/23 10/23/24 History
(3 mL) subcutaneous pen (Novolog
FlexPen U-100 Insulin aspart)
vit C 250 mg-vit E 90 mg-zinc 40 1 tab PO BID Supplement 05/18/23 10/23/24 History
mg-copper 1 [id number]
capsule (PreserVision AREDS-2)
furosemide 20 mg tablet (Lasix) 20 mg PO DAILY 10/04/24 10/23/24 History
insulin glargine 100 unit/mL (3 0 unit SC HS Diabetes 10/09/24 10/23/24 History
mL) subcutaneous pen (Lantus
Solostar U-100 Insulin)
levothyroxine 88 mcg tablet 88 mcg PO DAILY 10/23/24 10/23/24 History
(Synthroid)
Review of Systems
-
History Source: Patient
All other systems: Negative unless noted
Respiratory: Trouble Breathing
Neurological: Dizzy
Physical Exam
Vital Signs
Temp Pulse Resp BP Pulse Ox
98.1 F 83 25 91/62 98
10/23/24 12:23 10/23/24 15:30 10/23/24 15:30 10/23/24 15:00 10/23/24 16:20
Lab Results
10/23/24 14:59
10/23/24 14:59
Troponin I Cancelled 10/23/24 15:25
Ehg-V-Qufeoacsqga Pept 9710 pg/ml 10/23/24 14:59
Physical Exam
General: Comfortable (at rest)
HEENT: Normocephalic and Anicteric
Respiratory: Clear and Non Labored Respirations
Cardiac: S1/S2 (normal), Regular Rhythm, Murmur (III/ systolic murmur at apex), Peripheral Edema (none) and JVD (present)
Musculoskeletal: No Clubbing, No Cyanosis and No Edema
Skin: Warm and Dry
Neuro: AO x 3
Psych: Calm
Impression / Plan
-
78 y/o male with hx cardiac arrest 05/2023 (in setting of occluded RCA - med management), [place] s/p MDT dual chamber ICD, CAD s/p CABG and multiple PCIs, s/p AVR 2014, severe MR undergoing MitraClip evaluation. He presents to ED with low BP and
worsening CHILDS.
Elevated troponin
-NSTEMI (threat to life) vs Type 2 FL in setting of worsening MR
-he will continue ASA/Plavix
-heparin drip as we trend troponin (requires monitoring of Hgb)
-f/u echo this admission
Hypotension
-may need to repeat RHC for volume status as he appears euvolemic
CAD with hx CABG, multiple stents, chronic RCA occlusion:
-continue ASA, plavix, statin
-plan as above
Mitral regurgitation, severe:
-symptomatic, with worsening CHILDS
-undergoing MitraClip eval: TRUMAN done 10/04/24
-to discuss with team this admission
Chronic HFPEF
-appears euvolemic: continue lasix 20mg PO daily and SGLT2i
-aldactone stopped previously due to hyperkalemia
ICD in place:
-stable, continue to monitor in device clinic
Hx VT:
-treated with ATP previously; BB intolerance, declined amiodarone
Hx Bio AVR:
-recent echo as noted
L/RHC 10/09/24
HEMODYNAMIC DATA
AO 113/63 (mean 83) mmHg
RA 13 mmHg
RV 43/2 (EDP 12) mmHg
PA 49/19 (mean 30) mmHg
PCWP 23 (v-wave to 39) mmHg
SaO2 91.1%
SvO2 60.5%
Hb 13.0 g/dL
CO/CI 4.65/2.27 L/min/m2
SVR 1204 dsc*-5
PVR 1.5 Wood units
CORONARY ANGIOGRAPHY
Dominance: Right
LM: severely diseased vessel providing antegrade flow only to a small diagonal branch
LAD: fills via the radial graft to a diminutive apical vessel and retrograde back to a [employer] in the mid-vessel.
LCx: totally occluded. previously filled via the now occluded SVG-OM.
RCA: large vessel with prior stents in the prox to mid vessel with total occlusion within stent. The RPDA fills via the SVG.
BYPASS GRAFT ANGIOGRAPHY:
LORA-LAD: the LORA is taken as a pedicle and forms an anastomosis with the diagonal branch. There is moderate anastomotic disease that is unchanged from prior angiography.
SVG-RPDA: fills the RPDA but does not backfill the remainder of the RCA. There is moderate anastomotic disease that is relatively unchanged from prior.
SVG-OM1: occluded ostially within stent.
Radial-LORA: there is progression of ostial disease compared to 2023 that is now moderate with associated mild pressure dampening on engagement.
Data Reviewed
-
EKG: Tracing Personally Visualized and interpreted (SR, 1st degree AVB, lateral ST depression (similar to prior))
Medical Tests (Nuc Med, Echo etc): Report Reviewed by me (cath report per note)
Labs: Labs Reviewed by me
[2024-10-23] MEDS: HEPARIN 4000 UNITS IV (17:17)
[2024-10-23] MEDS: HEPARIN 25000 UNITS/250 ML IV (17:20)
[2024-10-23 19:28] LABS: APTT 29.9 Sec (23.4-35.0)
[2024-10-23 21:14] LABS: ACT-LR - POC 318 Seconds (116-155)
--- NOTE | 2024-10-23 22:05 | W.PN.ANESINT ---
Anesthesia Intubation Note
- Intubation Note
Intubation Note:
Diagnosis: PR, called to cardiac cath in progress
Blade: Glidescope 4
Tube Size: 8.0 ETT
Depth: secured at 21 cm at right lip
Side Taped: right
Drugs Used: Propofol 20 mg Succinylcholine 100 mg
Grade View: grade 1
EtCO2 Present: +ETCO2 via monitor
Atraumatic: yes
Attempts: 1
Insertion Start and Stop Time: arrived @2121 anesthesia stop time 2199
SaO2 Pre: 90's
SaO2 Post: 93
Glidescope Used: yes
Other Airway Adjustments: on n/c O2 on arrival, easy ambu bag ventilation
Pre-Oxygenated: yes
Portable Chest X-Ray: code situation
RSI:
Suctioned:
Bilateral Breath Sounds Confirmed: yes
Vent Settings: 500/12/5, MV at times during code
Called to [facility] [address] Sánchez for standby during cardiac catheterization. Pt responsive on arrival, decompensated within a few minutes of arrival. Airway secured, code/chest compressions started
Settings per ___Attending Physician
--- NOTE | 2024-10-23 22:18 | ITS.CL.ANGIO ---
[employer] [employer] [facility]ustod[facility] - Angioplasty
Angioplasty
Procedure Report:
CARDIAC CATHETERIZATION REPORT
Date of Procedure: 10/23/2024
Referring: Dwayne Escamilla M.D., Ph.D.
INDICATION: High risk non-ST elevation myocardial infarction, known coronary artery disease status post bypass, severe mitral valve regurgitation, hypotension and smoldering cardiogenic shock.
PROCEDURE:
1. Left heart catheterization.
2. Coronary angiography.
3. Bypass angiography.
4. Successful PTCA of the ostium of the left radial artery to LAD graft.
5. Attempted PCI of the ostium of the left radial artery graft complicated by stripping of the stent off of its delivery balloon with subsequent embolization.
6. ACLS.
A total of 0 minutes of procedural/moderate sedation was utilized. An independent medical collections specialist was present to assist with and help manage the patient's level of consciousness and physiologic status.
ACCESS:
1. 6 [place] left common femoral artery using a modified Seldinger technique with a micropuncture kit under ultrasound guidance.
2. 7 [place] right common femoral artery using a modified Seldinger technique with a micropuncture kit under ultrasound guidance.
3. 6 [place]ian right common femoral vein using a modified Seldinger technique.
CATHETERS:
1. 5 [place]ian JL 4.
2. 5 [place]ian JR4.
3. 5 [place]ian DANITA.
4. 5 [place]ian AL-1.
5. 6 [place]ian AL-1 guiding catheter.
6. 6 [place]ian JR4 guiding catheter.
HEMODYNAMIC DATA
Weight (kg): 93.9
AO (s/d/x, mmHg): 89/60/71
LV (s/x mmHg): 89/25
LEFT VENTRICULOGRAPHY: Not performed.
CORONARY ANGIOGRAPHY
Dominance: Right
Left Main: Normal size, bifurcating vessel. The vessel is diffusely diseased.
LAD: Normal size vessel giving rise to 1 significant diagonal. The vessel is chronically totally occluded in its proximal margin. The mid LAD is supplied by a patent left radial artery graft. The first diagonal is supplied by a patent LORA
graft. The diagonal is moderate to severely diseased immediately distal to the LORA anastomosis.
Ramus: Congenitally absent.
Circumflex: Nondominant vessel that is chronically totally occluded at its origin. Previously supplied by a now occluded SVG graft.
RCA: Large size, dominant vessel. Previous stents are visible throughout the vessel. The vessel is diffusely diseased with tandem 80% 90% lesions. The distal RCA is chronically totally occluded. The RPDA is supplied by a patent vein graft.
There is an 80-90% lesion in the RPDA after the anastomosis of the vein graft.
BYPASS GRAFT ANGIOGRAPHY
LORA to D1: Normal size graft with end-to-side anastomosis to the first diagonal. There is no evidence of stenosis or graft degeneration.
LRA to LAD: Normal size graft with end-to-side anastomosis to the mid LAD. There is an 90%, hazy lesion in the ostium of the left radial artery graft with dampening on catheter engagement.
SVG to OM: Chronically totally occluded at its origin. Stents are visible in the ostium of the bypass graft.
SVG to dRCA: Normal size graft with end-to-side anastomosis to the distal RCA. There is no evidence of stenosis or graft degeneration.
INTERVENTION(S)
1. Successful PTCA of the 90% ostial LRA to LAD graft (2.5 x 15 semicompliant balloon).
2. Unsuccessful PCI of the 90% ostial LRA to LAD graft (Medtronic [place] 2.5 x 12 OFELIA), complicated by the stent stripping off of the delivery balloon.
3. Unsuccessful snaring of the stripped stent.
4. ACLS.
Narrative:
The decision was made to proceed with percutaneous coronary intervention in light of his hypotension and cardiogenic shock. The patient was started on dobutamine as well as norepinephrine. The diagnostic catheter was removed over a wire and a 6Fr
AL-1 guiding catheter was advanced to the aortic root and seated in the ostium of the left radial artery graft to the mid LAD. Additional heparin was given and a Power Turn Flex wire was advanced into the distal graft and into the LAD. The 90%
ostial LRA graft lesion was predilated with a 2.0 x 12 semi-compliant balloon to 12 henrry. The semi-compliant balloon was removed and a Medtronic [place] 2.5 x 12 drug-eluting stent was advanced.
As the stent was advanced, it was unable to pass into the left radial artery graft and became lodged in the ostium. When it became obvious that the stent would not advance, the decision was made to remove the stent for more aggressive predilation.
The stent, firmly lodged in the left radial artery graft was stripped off of the stent delivery balloon. The balloon was withdrawn. A 1.25 x 6 semicompliant balloon was advanced over the wire in an attempt to pass through the stent, inflate the
balloon distal to it and retrieve the stent. Unfortunately, the balloon would not pass through the stent. With the balloon inside of the stent, the balloon was inflated to 6 henrry in an attempt to apply radial force to dislodge the stent.
Unfortunately, the stent still refused to yield. We attempted to get better angulation with our guiding catheter, however this resulted in guide disengagement from the artery which subsequently loosened the stent though it remained on the guidewire.
6 [place]ian access was obtained in the right common femoral artery and a 6 Lithuanian guiding catheter was advanced into the ascending aorta. An en-snare was advanced into the ascending aorta in an attempt to snare the stent to allow for retrieval.
Unfortunately, the ensnare was not able to retrieve the stent. The 6 [place]ian right common femoral sheath was upsized to a 7 Lithuanian sheath and a 7 Lithuanian JR4 guide was advanced. A 20 mm gooseneck snare was advanced. The snare was used several times
to grab the stent, but was unsuccessful. After several attempts, repeat fluoroscopy demonstrated that the stent was no longer in the aortic root. We made a cursory attempt to evaluate the peripheral arterial beds for the embolized stent, including
the arms and neck. Cineangiography of the head did not show any evidence of embolized stent. Neurologic exam was performed and the patient demonstrated no focal neurologic abnormalities.
As the stented clearly not embolized to the cerebral vasculature, the decision was made to return to our attempt to intervene on the radial artery graft with a plan for whole-body CT to identify the location of the embolized stent in the future.
The 7 [place]ian JR4 guiding catheter was removed. The catheter was reengaged in the left radial artery graft and the power turn flex wire was readvanced into the mid LAD. Throughout the entire course of the procedure, the patient's blood pressure had
been waxing and waning requiring higher and higher doses of inotropes and pressor therapy. At this point, the patient was minimally responsive and began convulsions. Anesthesia was called to the bedside and the patient was intubated for airway
protection. In this interim, the ostium of the left radial artery graft was dilated again with a 2.5 mm balloon. As we prepared to insert a stent, the patient's pulse pressure severely narrowed and essentially dropped to 0. ACLS was initiated
with the assistance of anesthesia. The patient underwent vigorous CPR with administration of appropriate vasoactive medications including several rounds of epinephrine. A 6 Lithuanian right common femoral venous access was obtained for administration
of vasoactive medication.
After >20 minutes of CPR and ACLS, the patient remained in pulseless electrical activity. Echocardiography using the bedside ultrasound echoprobe showed essentially cardiac standstill. Given the severe nature of his coronary disease with no
evidence of myocardial or coronary recovery, resuscitative efforts were discontinued. Time of 21:45.
Closure Device: N/A.
Radiation (mGy): 1103
DAP (cm2.Gy): 61.2
Fluoroscopy time (minutes): 26.7
CONCLUSIONS
1. 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
occluded SVG to OM) status post successful PTCA of the 90% ostial LRA lesion (2.5 x 15 semicompliant balloon) but failed PCI of the lesion, complicated by stripping of the stent off of its delivery balloon with failed scaring and embolization.
2. Severely elevated filling pressures (LVEDP = 25 mmHg at 93.9 kg).
3. Severe hypotension in the setting of elevated filling pressures consistent with cardiogenic shock.
4. Cardiac arrest with unsuccessful ACLS.
RECOMMENDATIONS:
1. 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
2. The patient's family has been updated and appreciate the [employer] [employer] [facility]'s efforts.
Copy to: Bernabe Madera M.D., Akira Perez M.D., Matt Fernandes M.D.
Fili Sánchez DO, FACC, FACP
--- NOTE | 2024-10-23 22:23 | PTCARENOTE ---
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 Time of was 2143. Dr Sánchez called coroners office. [facility] was called by Renee DOMINGUEZ. Pt does not qualify for donation. Pt body transported to ICU 3359 for family viewing. Body will be transported to
[facility] by ICU staff when family is finished.
--- NOTE | 2024-10-24 02:17 | PTCARENOTE ---
Spoke to Atilio [facility]ina [facility] as she was returning Dr. Mancuso initial call. Relayed details of patien't medical history and HPI per H&P and cardiac cath report in his EMR. Atilio Ospina states that the patient is not a
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 Dr. Sánchez and security made aware.
--- NOTE | 2024-10-24 08:58 | CM ---
Patient 10/23/24 @ 21:45.
--- NOTE | 2024-10-24 09:01 | W.PN.UPDATE ---
Update Note
Progress Note Update
Late entry for services provided 10/23/24 at 545pm.
Called back to assess patient for new chest pain. BP is 80s/50s. Unable to use nitro due to hypotension.
Presentation now consistent with NSTEMI with hemodynamic instability. High risk situation in critically ill patient.
Discussed with patient and at bedside. Discussed with interventional cardiology.
We decided we will proceed with high risk cardiac cath and possible PCI.
CCT 35 minutes.
== END 2024-10-23 22:14 | disposition expired | DRG 322 ==
LOC: ICU 16:43
PROVIDERS: Internal Medicine Cardiovascular Disease; ADMITTING PHYSICIAN Internal Medicine; CONSULT PHYSICIAN Internal Medicine; EMERGENCY PHYSICIAN Emergency Medicine; FAMILY PHYSICIAN Internal Medicine
PROC: 027034Z Dilation of Coronary Artery, One Artery with Drug-eluting Intraluminal Device, Percutaneous Approach (ICD-10-PCS; 2024-10-23)
PROC: B2121ZZ Fluoroscopy of Single Coronary Artery Bypass Graft using Low Osmolar Contrast (ICD-10-PCS; 2024-10-23)
PROC: 4A023N7 Measurement of Cardiac Sampling and Pressure, Left Heart, Percutaneous Approach (ICD-10-PCS; 2024-10-23)
PROC: B2181ZZ Fluoroscopy of Left Internal Mammary Bypass Graft using Low Osmolar Contrast (ICD-10-PCS; 2024-10-23)
PROC: 0BH17EZ Insertion of Endotracheal Airway into Trachea, Via Natural or Artificial Opening (ICD-10-PCS; 2024-10-23)
PROC: B2111ZZ Fluoroscopy of Multiple Coronary Arteries using Low Osmolar Contrast (ICD-10-PCS; 2024-10-23)
PROC: 5A12012 Performance of Cardiac Output, Single, Manual (ICD-10-PCS; 2024-10-23)
DX: I21.4 Non-ST elevation (NSTEMI) myocardial infarction (principal); I50.32 Chronic diastolic (congestive) heart failure; E87.20 Acidosis, unspecified; I47.20 Ventricular tachycardia, unspecified; E83.51 Hypocalcemia; I11.0 Hypertensive heart disease with heart failure; E11.9 Type 2 diabetes mellitus without complications; E03.9 Hypothyroidism, unspecified; R57.0 Cardiogenic shock; I46.9 Cardiac arrest, cause unspecified; I25.10 Atherosclerotic heart disease of native coronary artery without angina pectoris; I34.0 Nonrheumatic mitral (valve) insufficiency; Z79.82 Long term (current) use of aspirin; Z79.899 Other long term (current) drug therapy; Z82.49 Family history of ischemic heart disease and other diseases of the circulatory system
CPT/HCPCS: 71045; 80053; 81003; 81015; 82330; 83735; 83880; 84100; 84484; 85025; 85347; 85730; 92950; 93005; 93459; 99285; C1725; C1769; C1874; C1887; C1894; C9604